=== PATIENT | female | born 1960 | race Caucasian/White ===

== ENCOUNTER → 2017-02-03 | Outpatient (CLI) | payer MEDICARE ==
[~2017-02-03] MED LIST: ANTIVERT/2525 M1 PO; ANTIVERT25 MG PO; ASPIRIN81 M1 PO; ATIVAN0.5 MG PO; B COMPLEX1 EACH PO; CIPRO500 MG PO; CIPROFLOXACIN500 MG PO; FLAGYL500 MG PO; HYDR25T PO; HYDROCHLOROTH12.5 M3 PO; HYDRODIURIL25 MG; LOVASTATIN40 MG PO; METOPROLOL TART50 M1 PO; METOPROLOL50 MG PO; MEVACOR20 MG PO; PANTOPRAZOLE SO40 MG PO; PAPAYA ENZYME1 TA1 PO; PROBIOTIC250 MG PO; ULTRAM50 MG PO; VICODIN 5/500 505 MG PO; VITAMIN C500 M4 PO; VITAMIN D-32000 UNIT PO; ZANTAC 150150 MG PO; ZOFRAN4 MG PO
== END | disposition home or self-care (01) ==
LOC: MRI 11:00
DX: I67.82 Cerebral ischemia (principal)

== ENCOUNTER 2017-03-01 20:28 | Emergency (ER) | payer MEDICARE ==
[~2017-03-01] VITALS: Wt 77.1 kg
== END 2017-03-01 21:24 | disposition home or self-care (01) ==
LOC: ED 20:28
DX: S91.131A Puncture wound without foreign body of right great toe without damage to nail, initial encounter (principal); R03.0 Elevated blood-pressure reading, without diagnosis of hypertension; I10 Essential (primary) hypertension; E78.5 Hyperlipidemia, unspecified; F41.9 Anxiety disorder, unspecified; Z88.6 Allergy status to analgesic agent; Z88.1 Allergy status to other antibiotic agents; Z79.82 Long term (current) use of aspirin; Z79.899 Other long term (current) drug therapy; Y29.XXXA Contact with blunt object, undetermined intent, initial encounter; Y93.31 Activity, mountain climbing, rock climbing and wall climbing; Y92.828 Other wilderness area as the place of occurrence of the external cause; Y99.9 Unspecified external cause status

== ENCOUNTER → 2017-03-04 | Outpatient (CLI) | payer MEDICARE ==
--- NOTE | ~2017-03-04 | WRIGHTHP ---
[place], [place] PATIENT HISTORY AND PHYSICAL EXAM NAME: NICOLE CHAVEZ [facility] #: [id number] UNIT #: [id number] ROOM: DOCTOR: FRANCOIS HOGUE M.D. BIRTHDATE: [birth year] DOS: 03/04/2017 NEW PATIENT EVALUATION CHIEF COMPLAINT: The patient is a 56-year-old female who comes in with a chief complaint of an abscess on her chest wall. HISTORY OF PRESENT ILLNESS: This is a 56-year-old female who apparently has had a cyst of the chest wall for years that she initially had been considering removal of the cyst by surgery, but she was concerned about possible scarring, so she elected to not get the cyst removed, and that was just recently considered. However, approximately 02/12/2017, the cyst apparently started to become increased in size with signs of infection, and she had treated it with a "draw salve" to try to draw the infection. She said she used something called PRID and then something called bloodroot that she obtained from a friend of hers. She had been using alcohol initially and then peroxide afterwards for cleansing. Eventually, the abscess started to drain on its own where pus came out. She had been started on Bactrim, sounds like by her primary care physician, for 10 days. She took it and then she stopped, but now she is back on it. She was also seen by a plastic surgeon at [facility], it sounds like, where he had debrided some of the area. Apparently, there was some tissue around it, and she had the wound debrided. She continues to be concerned about scar formation and was told that she did not need to come back to the wound clinic for a week, so she wanted to be seen again regarding the wound for another opinion. She was told to use Neosporin on it. PAST MEDICAL HISTORY: Significant for hypertension, hyperlipidemia, chronic vertigo, history of depression, and a history of anxiety. She denies any history of diabetes or MRSA infections that she is aware of. She does complain of scar formation on her chest from previous wounds. She has had a history of abdominal pain, which is resolved, a history of acute renal failure, E. coli bacteremia, UTI, hyperlipidemia, hypokalemia, nausea, neutrophilic leukocytosis, pyelonephritis, severe malnutrition, history of sepsis with acute organ dysfunction, a history of tachycardia, which has resolved, transaminitis, and chronic vertigo. She is status post tubal ligation. FAMILY HISTORY: Significant for cancer in her mother, diabetes in her father, heart disease in her siblings, hypertension in her mother, stroke in her aunt, lung disease in her siblings, seizure disorder in grandparents, and thyroid problems in her siblings. SOCIAL HISTORY: She is a former smoker, quit in 1983, and is a . She rarely drinks alcohol, does not use any drugs. She drinks caffeine on a daily basis. ALLERGIES: CIPRO and CODEINE. CURRENT MEDICATIONS: Medications that are listed in her medical records are metoprolol 50 p.o. b.i.d., aspirin 81 daily, vitamin D3 2000 units daily, lovastatin 40 mg p.o. daily, vitamin B complex one daily, vitamin C 500 p.o. [place], [place] PATIENT HISTORY AND PHYSICAL EXAM NAME: NICOLE CHAVEZ UNIT #: [id number] ROOM: DOCTOR: FRANCOIS HOGUE M.D. BIRTHDATE: [birth year] daily. REVIEW OF SYSTEMS: She offers no specific complaints with the wound at this time. She says there is some drainage. There is no pain with it. No fevers or chills. No shortness of breath, no chest pain, no nausea, no vomiting, no diarrhea. No problems with the antibiotics that she is aware of. Right now, she is using triple antibiotic ointment and a gauze bandage for as a secondary dressing. PHYSICAL EXAMINATION: VITAL SIGNS: Her temperature is 98.6, pulse of 82, respirations 18, blood pressure is 122/82. GENERAL: This is a female who appears younger than her stated age, in no acute distress. HEENT: Her oropharynx is clear. Extraocular movements are intact. Sclerae are anicteric. NECK: There is no JVD. LUNGS: Clear to auscultation. CARDIOVASCULAR: S1, S2 regular rate and rhythm. ABDOMEN: Obese, soft, and nontender. EXTREMITIES: No edema, no clubbing, and no calf tenderness. NEUROLOGIC: She is nonfocal. WOUND EXAM: She has a wound that is in the center of her chest that is open and clean with granulation tissue. It is measuring 2.8 x 1.7 x 0.4 in depth, and there is a small amount of undermining at the 10 to 12 o'clock position. There is no tunneling. The wound is clean. There is no surrounding cellulitis or tenderness. A swab culture was obtained of the deepest part of the wound. ASSESSMENT AND PLAN: Chest wall abscess, which is already drained and free of any necrotic tissue. There is a little bit of undermining and depth to the wound. I would like to use Aquacel Ag ribbon as well as a foam overlying and have her change it on every other day, and I would discontinue the Neosporin for now and have her follow up with us in 1 week. A culture was obtained today. She is already on Bactrim. There are no signs of an acute infection at this time clinically. Followup in 1 week. [place], [place] PATIENT HISTORY AND PHYSICAL EXAM NAME: NICOLE CHAVEZ UNIT #: [id number] ROOM: DOCTOR: FRANCOIS HOGUE M.D. BIRTHDATE: [birth year] FRANCOIS HOGUE MD CM:HISPHYS:PATIENT HISTORY AND PHYSICAL EXAMINATION [id number] FRANCOIS HOGUE M.D. 03/05/17 1246 interface
== END ==
LOC: WOUNDCARE 10:51
DX: L02.213 Cutaneous abscess of chest wall (principal); I10 Essential (primary) hypertension; E78.5 Hyperlipidemia, unspecified; F32.9 Major depressive disorder, single episode, unspecified; F41.9 Anxiety disorder, unspecified; Z87.891 Personal history of nicotine dependence

== ENCOUNTER → 2017-03-11 | Outpatient (CLI) | payer MEDICARE ==
--- NOTE | ~2017-03-11 | PR ---
[place], [place] PROGRESS NOTE NAME: NICOLE CHAVEZ [facility] #: [id number] UNIT #: [id number] ROOM: DOCTOR: FRANCOIS HOGUE M.D. BIRTHDATE: [birth year] DOS: 03/11/2017 SUBJECTIVE: The patient comes in for a followup wound care visit. CHIEF COMPLAINT: An open ulcer of the chest wall. HISTORY OF PRESENT ILLNESS: She had a chronic cyst present in the chest for years. The cyst eventually broke open and drained on its own and she had an open wound present for approximately 2 weeks now. The wound was seen last week for the first time, where it was quite large. There was a little bit of undermining and some depth to it. A culture was obtained, which was unremarkable. She had been seen by a plastic surgeon at [facility] and she apparently did follow up with him last week as well, early this week and he thought that she did not need any kind of Plastic Surgery. She comes in today without any specific complaints. There is no pain. There are no fevers or chills. She seems to like the dressing that we have utilized, which is Aquacel Ag Ribbon and it seems to be getting smaller in general. PHYSICAL EXAMINATION: VITAL SIGNS: She is afebrile, pulse of 80, respirations 18, temperature is 98.2. Blood pressure is 120/70. WOUND EXAMINATION: The wound is definitely getting smaller at 1.8 x 1 x 0.2 only and one in the medial portion of the wound. There is really no visible necrotic tissue. There is a good amount of granulation tissue with no periwound cellulitis. There is really no undermining noted either. No debridement was done. ASSESSMENT AND PLAN: Healing abscess of the chest wall. We will continue with the current dressing and have her follow up in 1 week. FRANCOIS HOGUE MD CM:PNTRANS [id number] FRANCOIS HOGUE M.D. 03/11/172199 interface
== END | disposition home or self-care (01) ==
LOC: WOUNDCARE 03:34
DX: L02.213 Cutaneous abscess of chest wall (principal)

== ENCOUNTER → 2017-03-18 | Outpatient (CLI) | payer MEDICARE ==
[~2017-03-18] MED LIST changes: +VITAMIN E200 UNI3 PO
--- NOTE | ~2017-03-18 | PR ---
[place], [place] PROGRESS NOTE NAME: NICOLE CHAVEZ [facility] #: [id number] UNIT #: [id number] ROOM: DOCTOR: FRANCOIS HOGUE M.D. BIRTHDATE: [birth year] DOS: 03/18/2017 CHIEF COMPLAINT: An open ulcer of chest wall. HISTORY OF PRESENT ILLNESS: The patient had an abscess of her chest wall that drained on its own. She was left with a very large wound. She has been coming to the Wound Clinic for 2 weeks now where the wound has been steadily improving. She comes in today and the wound looks healed. She is not having any drainage coming from it. No pain, no fevers or chills. PHYSICAL EXAMINATION: VITAL SIGNS: Stable. Temperature 98.4, pulse is 74, respirations 18, blood pressure is 140/90. SKIN: The wound is healed. It is completely epithelialized. We will discharge the patient. ASSESSMENT AND PLAN: Healed abscess of the chest wall. Discharged the patient from the Wound Clinic and have her use moisturizer and/or Mederma to help lessen the appearance of the scar. FRANCOIS HOGUE MD CM:KASI [id number] FRANCOIS HOGUE M.D. 03/19/17 0237 interface
== END ==
LOC: WOUNDCARE 02:28
DX: L02.213 Cutaneous abscess of chest wall (principal)

== ENCOUNTER → 2017-03-24 | Day surgery (SDC) | payer MEDICARE ==
[~2017-03-24] VITALS: Ht 157.4 cm; Wt 77.1 kg
--- NOTE | ~2017-03-24 | O ---
[place], [place] OPERATIVE NOTE NAME: NICOLE CHAVEZ UNIT #: [id number] ROOM: DOCTOR: ROBER CERVANTES MD BIRTHDATE: [birth year] DOS: 03/24/2017 PREOPERATIVE DIAGNOSIS: Toxic labyrinthitis left ear. POSTOPERATIVE DIAGNOSIS: Toxic labyrinthitis left ear. OPERATION: Intratympanic dexamethasone perfusion left ear. SURGEON: Dr. Cervantes. ANESTHESIA: General. OPERATIVE FINDINGS AND PROCEDURE: Following induction of general anesthesia the patient was positioned supine on the OR table, draped in a standard fashion for ear surgery. Approximately 1 mL of dexamethasone injection 10 mg/mL concentration was placed in the left middle ear space using a 25 gauge spinal needle. The patient tolerated the procedure well, was awakened and transported to PACU in satisfactory condition. ROBER CERVANTES MD CM:OPRECORD:OPERATIVE NOTE [id number] ROBER CERVANTES MD 03/24/17 1441 interface
[2017-03-24 09:37] VITALS: BP 150/57
[2017-03-24 10:32] VITALS: BP 90/37
[2017-03-24 10:47] VITALS: BP 103/37
[2017-03-24 10:58] VITALS: BP 110/53
[2017-03-24 11:02] VITALS: BP 103/55
== END | disposition home or self-care (01) ==
LOC: SDC 03-19 09:30
DX: H83.01 Labyrinthitis, right ear (principal); I10 Essential (primary) hypertension; E78.5 Hyperlipidemia, unspecified; N30.10 Interstitial cystitis (chronic) without hematuria; Z83.3 Family history of diabetes mellitus; Z82.49 Family history of ischemic heart disease and other diseases of the circulatory system; Z80.0 Family history of malignant neoplasm of digestive organs; Z87.891 Personal history of nicotine dependence; Z79.899 Other long term (current) drug therapy; Z88.1 Allergy status to other antibiotic agents; Z88.5 Allergy status to narcotic agent; K21.9 Gastro-esophageal reflux disease without esophagitis; F41.9 Anxiety disorder, unspecified; F32.9 Major depressive disorder, single episode, unspecified; Z98.51 Tubal ligation status; K75.9 Inflammatory liver disease, unspecified

== ENCOUNTER → 2017-04-25 | Outpatient (CLI) | payer MEDICARE | END | disposition home or self-care (01) | LOC: RAD 13:25 | DX: M17.11 Unilateral primary osteoarthritis, right knee (principal); M25.461 Effusion, right knee; M76.9 Unspecified enthesopathy, lower limb, excluding foot ==

== ENCOUNTER → 2017-04-28 | Day surgery (SDC) | payer MEDICARE ==
[~2017-04-28] VITALS: Ht 157.4 cm; Wt 77.1 kg
--- NOTE | ~2017-04-28 | ZIPDEX ---
[place], [place] INTRATYMPANIC DEXAMETHASONE INJECTION [id number] UNIT #: [id number] ROOM: DOCTOR: ROBER WEBER MDATE: [birth year] DATE: 04/28/17 PREOPERATIVE DIAGNOSIS: Toxic labyrinthitis left ear. POSTOPERATIVE DIAGNOSIS: Same. OPERATION: Intratympanic Dexamethasone perfusion left ear. SURGEON: Dr. Weber. ANESTHESIA: General. OPERATIVE FINDINGS AND PROCEDURE: Following induction of general anesthesia the patient was positioned supine on the OR table, draped in a standard fashion for ear surgery. Approximately 1 cc of Dexamethasone injection 10 mg/cc concentration was placed in the left middle ear space using a 25 gauge spinal needle. The patient tolerated the procedure well, was awakened and transported to PACU in satisfactory condition. MROBER VILLARREAL MD CM:OPRECORD:INTRATYMPANIC DEXAMETHASONE INJECTION 1006 [id number] ROBER WEBER MD 04/30/17 1007 BOOM RAE.Neida
[2017-04-28 11:00] VITALS: BP 132/82
[2017-04-28 12:08] VITALS: BP 87/40
[2017-04-28 12:22] VITALS: BP 84/41
[2017-04-28 12:38] VITALS: BP 84/41
[2017-04-28 12:50] VITALS: BP 118/69
[2017-04-28 12:58] VITALS: BP 118/69
== END | disposition home or self-care (01) ==
LOC: SDC 04-23 08:45
DX: H83.02 Labyrinthitis, left ear (principal); I10 Essential (primary) hypertension; K21.9 Gastro-esophageal reflux disease without esophagitis; F41.9 Anxiety disorder, unspecified; F32.9 Major depressive disorder, single episode, unspecified; E78.00 Pure hypercholesterolemia, unspecified; Z82.49 Family history of ischemic heart disease and other diseases of the circulatory system; Z87.891 Personal history of nicotine dependence; B19.10 Unspecified viral hepatitis B without hepatic coma; Z98.51 Tubal ligation status; Z98.890 Other specified postprocedural states; Z88.1 Allergy status to other antibiotic agents; Z88.8 Allergy status to other drugs, medicaments and biological substances; Z80.0 Family history of malignant neoplasm of digestive organs

== ENCOUNTER → 2017-05-19 | Day surgery (SDC) | payer MEDICARE ==
[~2017-05-19] VITALS: Ht 157.4 cm; Wt 77.1 kg
--- NOTE | ~2017-05-19 | O ---
[place], [place] OPERATIVE NOTE NAME: NICOLE CHAVEZ UNIT #: [id number] ROOM: DOCTOR: ROBER CERVANTES MD BIRTHDATE: [birth year] DOS: 05/19/2017 PREOPERATIVE DIAGNOSIS: Toxic labyrinthitis left ear. POSTOPERATIVE DIAGNOSIS: Toxic labyrinthitis left ear. OPERATION: Intratympanic dexamethasone perfusion left ear. SURGEON: Dr. Cervantes. ANESTHESIA: General. OPERATIVE FINDINGS AND PROCEDURE: Following induction of general anesthesia the patient was positioned supine on the OR table, draped in a standard fashion for ear surgery. Approximately 1 mL of dexamethasone injection 10 mg/mL concentration was placed in the left middle ear space using a 25 gauge spinal needle. The patient tolerated the procedure well, was awakened and transported to PACU in satisfactory condition. ROBER CERVANTES MD CM:OPRECORD:OPERATIVE NOTE 5 7 ROBER CERVANTES MD 05/19/17847 interface
[2017-05-19 07:15] VITALS: BP 148/70
[2017-05-19 08:28] VITALS: BP 113/51
[2017-05-19 08:43] VITALS: BP 100/42
[2017-05-19 08:58] VITALS: BP 119/59
== END | disposition home or self-care (01) ==
LOC: SDC 05-15 12:30
DX: H83.02 Labyrinthitis, left ear (principal); Z87.891 Personal history of nicotine dependence; I10 Essential (primary) hypertension; K21.9 Gastro-esophageal reflux disease without esophagitis; F41.9 Anxiety disorder, unspecified; F32.9 Major depressive disorder, single episode, unspecified; E78.00 Pure hypercholesterolemia, unspecified; K75.9 Inflammatory liver disease, unspecified; Z98.51 Tubal ligation status; Z82.49 Family history of ischemic heart disease and other diseases of the circulatory system

== ENCOUNTER → 2017-07-16 | Outpatient (CLI) | payer MEDICARE | END | disposition home or self-care (01) | LOC: RAD 14:26 | DX: M25.552 Pain in left hip (principal); M54.42 Lumbago with sciatica, left side ==

== ENCOUNTER → 2017-12-25 | Outpatient (CLI) | payer MEDICARE | END | disposition home or self-care (01) | LOC: US 12-23 11:00 | DX: I70.219 Atherosclerosis of native arteries of extremities with intermittent claudication, unspecified extremity (principal) ==

== ENCOUNTER 2018-02-09 10:12 | Inpatient (IN) | payer MEDICARE ==
[~2018-02-09] VITALS: Ht 157.4 cm; Wt 81.8 kg
--- NOTE | ~2018-02-09 | ST ---
[place], [place] EXERCISE STRESS TEST REPORT [id number] UNIT #: [id number] ROOM: [id number] DOCTOR: GABRIEL TAVARES MD BIRTHDATE: [birth year] DOS: 02/10/2018 EXERCISE TREADMILL STRESS TEST. REFERRING PHYSICIAN: Dr. Preston. INDICATION: Central chest pain. The patient underwent standard Cesar protocol stress EKG with accompanying perfusion scan imaging. The patient's baseline EKG showed normal sinus rhythm with nonspecific ST-T wave changes. The patient's baseline heart rate 72 beats per minute with the blood pressure 124/90. The patient's peak heart rate was 147 with a peak blood pressure 124/68. The patient's peak heart rate of 147 represents 90% of maximum predicted. The patient exercised for 6 minutes. The patient had no chest pain. The patient had no arrhythmias. The patient did have [address] depressions in leads II, III, aVF as well as V5 and V6. These were first 6 minutes of exercise with a heart rate of 147. These resolved within 1 minute of recovery. SUMMARY OF FINDINGS: 1. Abnormal stress EKG with [address] depression in inferior lateral leads that resolved within 1 minute of recovery. 2. Wheeler Treadmill score of 1 portending intermediate risk prognosis. 3. Please see perfusion scan imaging for stress imaging results. GABRIEL TAVARES MD CM:STRESS:EXERCISE STRESS TEST REPORT [id number] GABRIEL TAVARES MD
[2018-02-09 10:12] VITALS: BP 134/56
[2018-02-09 10:44] LABS: BASO # 0.1 10*3/uL (0.0-0.1); BASO % 0.9 % (0.0-1.0); EOS # 0.2 10*3/uL (0.0-0.4); EOS % 2.1 % (1.0-4.0); HEMATOCRIT 41.3 % (37.0-47.0); HEMOGLOBIN 13.8 g/dl (12.0-16.0); MEAN CORPUSCULAR HGB 30.1 pg (27.0-31.0); MEAN CORPUSCULAR HGB CONC 33.4 g/dl (33.0-37.0); MEAN PLATELET VOLUME 8.4 fl (9.6-12.3); MONO # 0.8 10*3/uL (0.1-1.0); MONO % 10.8 % (3.0-9.0); NEUT # 4.6 10*3/uL (2.3-7.9); NEUT % 59.9 % (47.0-73.0); PLATELET COUNT AUTOMATED 364 10*3/uL (130-400); RED BLOOD COUNT 4.59 10*6/uL (4.10-5.10); RED CELL DISTRI WIDTH 13.1 % (0-14.5); WHITE BLOOD COUNT 7.6 10*3/uL (4.8-10.8)
[2018-02-09 10:54] LABS: ACT PARTIAL THROMBO TIME 23.9 SECONDS (20.8-31.5); INTERNATIONAL NORM RATIO 0.9 (2.0-3.5)
[2018-02-09 11:00] LABS: ALBUMIN 3.6 gm/dl (3.1-4.5); ALKALINE PHOSPHATASE 109 U/L (45-117); BUN 12 mg/dl (7-24); CHLORIDE 107 mmol/L (98-107); CREATININE 0.86 mg/dL (0.55-1.02); POTASSIUM 4.2 mmol/L (3.5-5.1); SGOT/AST 21 IU/L (3-35); SGPT/ALT 23 U/L (12-78); SODIUM 140 mmol/L (136-145); TOTAL PROTEIN 7.3 gm/dL (6.4-8.2)
[2018-02-09 11:04] LABS: TROPONIN I < 0.015 ng/ml (<0.045)
[2018-02-09 11:21] VITALS: BP 128/58
[2018-02-09 12:00] VITALS: BP 148/64
[2018-02-09] MEDS ORDERED: VITAMIN D50000 UNIT PO (14:25)
[2018-02-09] MEDS ORDERED: FENOFIBRATE54 MG PO (14:25)
[2018-02-09] MEDS ORDERED: ZOLOFT50 MG PO (14:26)
[2018-02-09] MEDS ORDERED: TOPROL XL25 MG PO (14:27)
[2018-02-09] MEDS ORDERED: HYDR12.5C PO (14:27)
[2018-02-09 16:00] VITALS: BP 143/55
[2018-02-09 20:00] VITALS: BP 159/77
[2018-02-10] VITALS: BP 146/78
[2018-02-10 08:00] VITALS: BP 144/73
[2018-02-10 12:00] VITALS: BP 130/60
[2018-02-10 12:33] LABS: BASO # 0.1 10*3/uL (0.0-0.1); BASO % 0.9 % (0.0-1.0); EOS # 0.1 10*3/uL (0.0-0.4); EOS % 1.9 % (1.0-4.0); HEMATOCRIT 42.2 % (37.0-47.0); HEMOGLOBIN 14.1 g/dl (12.0-16.0); LYMPH % 29.2 % (27.0-41.0); MEAN CELL VOLUME 89.6 fl (81.0-99.0); MEAN CORPUSCULAR HGB 29.9 pg (27.0-31.0); MEAN CORPUSCULAR HGB CONC 33.4 g/dl (33.0-37.0); MEAN PLATELET VOLUME 8.7 fl (9.6-12.3); MONO # 0.7 10*3/uL (0.1-1.0); MONO % 10.2 % (3.0-9.0); NEUT % 57.7 % (47.0-73.0); PLATELET COUNT AUTOMATED 377 10*3/uL (130-400); RED BLOOD COUNT 4.71 10*6/uL (4.10-5.10); RED CELL DISTRI WIDTH 13.1 % (0-14.5)
[2018-02-10 12:44] LABS: ACT PARTIAL THROMBO TIME 24.2 SECONDS (20.8-31.5); INTERNATIONAL NORM RATIO 0.9 (2.0-3.5)
[2018-02-10 12:47] LABS: ALBUMIN 3.7 gm/dl (3.1-4.5); ALKALINE PHOSPHATASE 117 U/L (45-117); BUN 19 mg/dl (7-24); CHLORIDE 105 mmol/L (98-107); CHOLESTEROL 252 mg/dL (<200); CREATININE 0.97 mg/dL (0.55-1.02); FREE T4 0.85 ng/dl (0.76-1.46); PHOSPHOROUS 3.4 mg/dL (2.5-4.9); POTASSIUM 3.7 mmol/L (3.5-5.1); SGOT/AST 22 IU/L (3-35); SGPT/ALT 28 U/L (12-78); SODIUM 138 mmol/L (136-145); TOTAL PROTEIN 7.8 gm/dL (6.4-8.2); TRIGLYCERIDES 120 mg/dl (<150); VLDL CHOLESTEROL 24 mg/dL (6-40)
[2018-02-10 12:53] LABS: HDL CHOLESTEROL 56 mg/dl (40-60); LDL CHOLESTEROL 172 mg/dL (9-159)
[2018-02-10 13:27] LABS: VITAMIN D, 25-HYDROXY 26.6 ng/mL (30-100)
[2018-02-10] MEDS ORDERED: LOVASTATIN40 MG PO (14:33)
== END 2018-02-10 15:45 | disposition home or self-care (01) | DRG 313 ==
LOC: ED 10:12 → 5E 11:10 → EDHOLD 11:10 → 5E 11:37
PROVIDERS: Family Medicine; Student in an Organized Health Care Education/Training Program
PROC: 4A02XM4 Measurement of Cardiac Total Activity, External Approach (ICD-10-PCS; principal; 2018-02-10)
DX: R07.9 Chest pain, unspecified (principal); E55.9 Vitamin D deficiency, unspecified; K21.9 Gastro-esophageal reflux disease without esophagitis; I10 Essential (primary) hypertension; E78.5 Hyperlipidemia, unspecified; E66.9 Obesity, unspecified; R00.1 Bradycardia, unspecified; F41.9 Anxiety disorder, unspecified; Z87.891 Personal history of nicotine dependence; Z82.49 Family history of ischemic heart disease and other diseases of the circulatory system; Z98.51 Tubal ligation status; Z83.3 Family history of diabetes mellitus; Z80.0 Family history of malignant neoplasm of digestive organs; Z88.1 Allergy status to other antibiotic agents; Z88.8 Allergy status to other drugs, medicaments and biological substances; Z79.899 Other long term (current) drug therapy; Z79.82 Long term (current) use of aspirin; Z87.440 Personal history of urinary (tract) infections; Z68.33 Body mass index [BMI] 33.0-33.9, adult

== ENCOUNTER → 2018-08-02 | Outpatient (CLI) | payer MEDICARE ==
[~2018-08-02] MED LIST changes: +FENOFIBRATE54 MG PO; +HYDR12.5C PO; +SEPTDS PO; +TOPROL XL25 MG PO; +VITAMIN D50000 UNIT PO; +ZOLOFT50 MG PO
[2018-08-02 10:33] LABS: BASO # 0.1 10*3/uL (0.0-0.1); BASO % 1.2 % (0.0-1.0); EOS # 0.3 10*3/uL (0.0-0.4); EOS % 4.4 % (1.0-4.0); HEMATOCRIT 45.1 % (37.0-47.0); HEMOGLOBIN 14.9 g/dl (12.0-16.0); LYMPH # 2.1 10*3/uL (1.3-4.4); LYMPH % 27.7 % (27.0-41.0); MEAN CELL VOLUME 91.9 fl (81.0-99.0); MEAN CORPUSCULAR HGB 30.3 pg (27.0-31.0); MEAN PLATELET VOLUME 8.7 fl (9.6-12.3); MONO # 0.5 10*3/uL (0.1-1.0); MONO % 6.7 % (3.0-9.0); NEUT # 4.4 10*3/uL (2.3-7.9); NEUT % 59.7 % (47.0-73.0); PLATELET COUNT AUTOMATED 322 10*3/uL (130-400); RED BLOOD COUNT 4.91 10*6/uL (4.10-5.10); WHITE BLOOD COUNT 7.4 10*3/uL (4.8-10.8)
[2018-08-02 11:12] LABS: ALBUMIN 3.9 gm/dl (3.1-4.5); BUN 13 mg/dl (7-24); CHLORIDE 102 mmol/L (98-107); CHOLESTEROL 228 mg/dL (<200); CREATININE 0.84 mg/dL (0.55-1.02); POTASSIUM 3.6 mmol/L (3.5-5.1); SGOT/AST 26 IU/L (3-35); SGPT/ALT 26 U/L (12-78); SODIUM 135 mmol/L (136-145); THYROXINE (T4) TOTAL 9.8 ug/dl (4.8-13.9); TOTAL PROTEIN 7.9 gm/dL (6.4-8.2); TRIGLYCERIDES 166 mg/dl (<150); VLDL CHOLESTEROL 33 mg/dL (6-40)
[2018-08-02 11:21] LABS: ALKALINE PHOSPHATASE 117 U/L (45-117); HDL CHOLESTEROL 52 mg/dl (40-60); LDL CHOLESTEROL 143 mg/dL (9-159)
[2018-08-03 11:07] LABS: CREATININE,URINE 33.2 mg/dL (Not Estab.); MICRO ALBUMIN/CRE RATIO 9.9 (0.0-30.0)
== END | disposition home or self-care (01) ==
LOC: LAB 09:47
PROVIDERS: Emergency Medicine
DX: I10 Essential (primary) hypertension (principal); E78.2 Mixed hyperlipidemia; R73.01 Impaired fasting glucose; F32.9 Major depressive disorder, single episode, unspecified

== ENCOUNTER 2018-08-11 15:45 | Emergency (ER) | payer MEDICARE ==
[~2018-08-11] VITALS: Ht 157.4 cm; Wt 81.6 kg
[~2018-08-11 15:45] MED LIST changes: -SEPTDS PO
[2018-08-30] MEDS ORDERED: SEPTDS PO (23:34)
== END 2018-08-11 17:30 | disposition home or self-care (01) ==
LOC: ED 15:45
DX: R05 Cough (principal); K21.9 Gastro-esophageal reflux disease without esophagitis; E78.5 Hyperlipidemia, unspecified; I10 Essential (primary) hypertension; E66.9 Obesity, unspecified; Z68.30 Body mass index [BMI] 30.0-30.9, adult; Z88.5 Allergy status to narcotic agent; Z88.1 Allergy status to other antibiotic agents; Z79.899 Other long term (current) drug therapy; Z79.82 Long term (current) use of aspirin; Z87.891 Personal history of nicotine dependence

== ENCOUNTER 2018-08-31 20:52 | Emergency (ER) | payer MEDICARE ==
[~2018-08-31] VITALS: Ht 157.4 cm; Wt 77.1 kg
[~2018-08-31 20:52] MED LIST changes: +SEPTDS PO
== END 2018-08-31 21:32 | disposition home or self-care (01) ==
LOC: ED 20:52
DX: T82.898A Other specified complication of vascular prosthetic devices, implants and grafts, initial encounter (principal); Z88.1 Allergy status to other antibiotic agents; Z88.6 Allergy status to analgesic agent; Z79.899 Other long term (current) drug therapy; Z79.82 Long term (current) use of aspirin; Z87.891 Personal history of nicotine dependence

== ENCOUNTER → 2019-01-20 | Outpatient (CLI) | payer OTHER, MEDICARE ==
[~2019-01-20] MED LIST changes: +CEPHALEXIN500 M1 PO
[2019-01-20 10:52] LABS: BASO # 0.1 10*3/uL (0.0-0.1); BASO % 0.8 % (0.0-1.0); EOS # 0.2 10*3/uL (0.0-0.4); EOS % 2.9 % (1.0-4.0); HEMATOCRIT 46.1 % (37.0-47.0); HEMOGLOBIN 15.1 g/dl (12.0-16.0); LYMPH # 1.5 10*3/uL (1.3-4.4); LYMPH % 25.7 % (27.0-41.0); MEAN CELL VOLUME 91.1 fl (81.0-99.0); MEAN CORPUSCULAR HGB 29.8 pg (27.0-31.0); MEAN CORPUSCULAR HGB CONC 32.8 g/dl (33.0-37.0); MEAN PLATELET VOLUME 8.7 fl (9.6-12.3); MONO # 0.5 10*3/uL (0.1-1.0); MONO % 8.4 % (3.0-9.0); NEUT # 3.7 10*3/uL (2.3-7.9); NEUT % 61.9 % (47.0-73.0); PLATELET COUNT AUTOMATED 312 10*3/uL (130-400); RED BLOOD COUNT 5.06 10*6/uL (4.10-5.10); RED CELL DISTRI WIDTH 13.2 % (0-14.5)
[2019-01-20 11:16] LABS: ALBUMIN 3.6 gm/dl (3.1-4.5); ALKALINE PHOSPHATASE 126 U/L (45-117); BUN 10 mg/dl (7-24); CHLORIDE 109 mmol/L (98-107); CHOLESTEROL 224 mg/dL (<200); CREATININE 0.88 mg/dL (0.55-1.02); HDL CHOLESTEROL 51 mg/dl (40-60); IRON 88 ug/dL (50-170); LDL CHOLESTEROL 144 mg/dL (9-159); POTASSIUM 4.2 mmol/L (3.5-5.1); SGOT/AST 24 IU/L (3-35); SGPT/ALT 27 U/L (12-78); SODIUM 141 mmol/L (136-145); TOTAL IRON BINDING CAPACITY 362 ug/dl (250-450); TOTAL PROTEIN 7.8 gm/dL (6.4-8.2); TRIGLYCERIDES 146 mg/dl (<150); VLDL CHOLESTEROL 29 mg/dL (6-40)
== END | disposition home or self-care (01) ==
LOC: LAB 10:22
PROVIDERS: Emergency Medicine
DX: I10 Essential (primary) hypertension (principal); E11.9 Type 2 diabetes mellitus without complications; E78.5 Hyperlipidemia, unspecified; R53.83 Other fatigue

== ENCOUNTER 2019-05-13 08:48 | Emergency (ER) | payer MEDICARE ==
[~2019-05-13] VITALS: Ht 157.4 cm; Wt 83.9 kg
[~2019-05-13 08:48] MED LIST changes: -CEPHALEXIN500 M1 PO
[2019-05-13] MEDS ORDERED: CEPHALEXIN500 M1 PO (09:42)
== END 2019-05-13 10:59 | disposition home or self-care (01) ==
LOC: ED 08:48
DX: M79.671 Pain in right foot (principal); Z88.5 Allergy status to narcotic agent; Z88.1 Allergy status to other antibiotic agents; Z79.899 Other long term (current) drug therapy; Z79.82 Long term (current) use of aspirin; Z87.891 Personal history of nicotine dependence

== ENCOUNTER 2019-06-05 11:24 | Emergency (ER) | payer MEDICARE ==
[~2019-06-05] VITALS: Ht 157.4 cm; Wt 81.6 kg
[~2019-06-05 11:24] MED LIST changes: +CEPHALEXIN500 M1 PO
[2019-06-05] MEDS ORDERED: CIPRO250 MG PO (11:58)
== END 2019-06-05 12:16 | disposition home or self-care (01) ==
LOC: ED 11:24
DX: S91.131A Puncture wound without foreign body of right great toe without damage to nail, initial encounter (principal); K21.9 Gastro-esophageal reflux disease without esophagitis; E66.9 Obesity, unspecified; E78.5 Hyperlipidemia, unspecified; I10 Essential (primary) hypertension; Z88.6 Allergy status to analgesic agent; Z88.1 Allergy status to other antibiotic agents; Z79.899 Other long term (current) drug therapy; Z79.82 Long term (current) use of aspirin; Z68.34 Body mass index [BMI] 34.0-34.9, adult; Z87.891 Personal history of nicotine dependence; W45.0XXA Nail entering through skin, initial encounter; Y93.89 Activity, other specified; Y92.89 Other specified places as the place of occurrence of the external cause; Y99.8 Other external cause status

== ENCOUNTER → 2020-03-21 | Outpatient (CLI) | payer MEDICARE ==
[~2020-03-21] MED LIST changes: +CIPRO250 MG PO
[2020-03-21 07:30] LABS: BASO # 0.1 10*3/uL (0.0-0.1); EOS # 0.2 10*3/uL (0.0-0.4); EOS % 2.3 % (1.0-4.0); HEMATOCRIT 43.5 % (37.0-47.0); LYMPH % 28.9 % (27.0-41.0); MEAN CELL VOLUME 90.8 fl (81.0-99.0); MEAN CORPUSCULAR HGB 29.9 pg (27.0-31.0); MEAN CORPUSCULAR HGB CONC 32.9 g/dl (33.0-37.0); MEAN PLATELET VOLUME 8.9 fl (9.6-12.3); MONO # 0.6 10*3/uL (0.1-1.0); MONO % 8.6 % (3.0-9.0); NEUT % 58.9 % (47.0-73.0); PLATELET COUNT AUTOMATED 362 10*3/uL (130-400); RED BLOOD COUNT 4.79 10*6/uL (4.10-5.10); RED CELL DISTRI WIDTH 13.1 % (0-14.5); WHITE BLOOD COUNT 6.9 10*3/uL (4.8-10.8)
[2020-03-21 08:03] LABS: ALBUMIN 3.6 gm/dl (3.1-4.5); ALKALINE PHOSPHATASE 119 U/L (45-117); BILIRUBIN, DIRECT 0.1 mg/dL (0.0-0.2); BUN 12 mg/dl (7-24); CHLORIDE 105 mmol/L (98-107); CHOLESTEROL 214 mg/dL (<200); CPK 83 U/L (26-192); CREATININE 0.84 mg/dL (0.55-1.02); HDL CHOLESTEROL 48 mg/dl (40-60); LDL CHOLESTEROL 135 mg/dL (9-159); POTASSIUM 3.8 mmol/L (3.5-5.1); SGOT/AST 21 IU/L (3-35); SGPT/ALT 26 U/L (12-78); SODIUM 135 mmol/L (136-145); TOTAL PROTEIN 7.3 gm/dL (6.4-8.2); TRIGLYCERIDES 153 mg/dl (<150); VLDL CHOLESTEROL 31 mg/dL (6-40)
[2020-03-21 12:16] LABS: VITAMIN D, 25-HYDROXY 40.1 ng/mL (30-100)
[2020-03-23 11:41] LABS: IMMUNOGLOBULIN G, QNT 1046 mg/dL (586-1602); IMMUNOGLOBULIN M, QNT 65 mg/dL (26-217)
== END | disposition home or self-care (01) ==
LOC: LAB 06:48
PROVIDERS: Psychiatry & Neurology Neurology
DX: I10 Essential (primary) hypertension (principal); M25.50 Pain in unspecified joint; E55.9 Vitamin D deficiency, unspecified; E78.2 Mixed hyperlipidemia; M54.31 Sciatica, right side; G90.09 Other idiopathic peripheral autonomic neuropathy; E11.9 Type 2 diabetes mellitus without complications

== ENCOUNTER 2020-03-23 21:12 | Emergency (ER) | payer MEDICARE ==
[2020-03-24 00:06] LABS: BASO # 0.1 10*3/uL (0.0-0.1); BASO % 0.8 % (0.0-1.0); EOS # 0.1 10*3/uL (0.0-0.4); EOS % 1.4 % (1.0-4.0); HEMATOCRIT 44.3 % (37.0-47.0); LYMPH # 2.5 10*3/uL (1.3-4.4); LYMPH % 27.2 % (27.0-41.0); MEAN CELL VOLUME 91.9 fl (81.0-99.0); MEAN CORPUSCULAR HGB 30.1 pg (27.0-31.0); MEAN CORPUSCULAR HGB CONC 32.7 g/dl (33.0-37.0); MEAN PLATELET VOLUME 9.2 fl (9.6-12.3); MONO % 10.5 % (3.0-9.0); NEUT # 5.5 10*3/uL (2.3-7.9); NEUT % 59.9 % (47.0-73.0); PLATELET COUNT AUTOMATED 287 10*3/uL (130-400); RED BLOOD COUNT 4.82 10*6/uL (4.10-5.10); RED CELL DISTRI WIDTH 13.2 % (0-14.5); WHITE BLOOD COUNT 9.2 10*3/uL (4.8-10.8)
[2020-03-24 00:20] LABS: ACT PARTIAL THROMBO TIME 22.5 SECONDS (20.0-32.1); INTERNATIONAL NORM RATIO 0.9 (2.0-3.5)
[2020-03-24 00:23] LABS: ALBUMIN 3.6 gm/dl (3.1-4.5); ALKALINE PHOSPHATASE 115 U/L (45-117); BUN 14 mg/dl (7-24); CHLORIDE 106 mmol/L (98-107); CREATININE 1.01 mg/dL (0.55-1.02); LIPASE 150 U/L (73-393); POTASSIUM 3.9 mmol/L (3.5-5.1); SGOT/AST 20 IU/L (3-35); SGPT/ALT 25 U/L (12-78); SODIUM 138 mmol/L (136-145); TOTAL PROTEIN 7.5 gm/dL (6.4-8.2); TROPONIN I < 0.015 ng/ml (<0.045)
[2020-03-24 02:41] LABS: BILIRUBIN NEGATIVE (NEGATIVE); BLOOD 1+ (NEGATIVE); CLARITY CLEAR (CLEAR); COLOR YELLOW (YELLOW); EPITHELIAL CELLS 21-30; GLUCOSE NEGATIVE (NEGATIVE); KETONE NEGATIVE (NEGATIVE); LEUKO ESTERASE 3+ (NEGATIVE); NITRITE NEGATIVE (NEGATIVE); PH 7.5 (5.0-9.0); SPECIFIC GRAVITY 1.005 (1.005-1.030); UROBILINOGEN 0.2 E.U./dl (0.2-1.0)
[2020-03-24 02:42] LABS: WBC 21-30 wbc/hpf (0-5)
== END 2020-03-24 03:32 | disposition home or self-care (01) ==
LOC: ED 21:12
PROVIDERS: Emergency Medicine Emergency Medical Services
DX: I95.89 Other hypotension (principal); E86.9 Volume depletion, unspecified; Z88.8 Allergy status to other drugs, medicaments and biological substances; Z88.5 Allergy status to narcotic agent; Z79.899 Other long term (current) drug therapy; Z79.82 Long term (current) use of aspirin

== ENCOUNTER → 2020-07-10 | Outpatient (CLI) | payer MEDICARE ==
[2020-07-10 07:26] LABS: BASO # 0.1 10*3/uL (0.0-0.1); BASO % 0.9 % (0.0-1.0); EOS # 0.3 10*3/uL (0.0-0.4); EOS % 3.7 % (1.0-4.0); HEMATOCRIT 45.6 % (37.0-47.0); LYMPH % 25.6 % (27.0-41.0); MEAN CELL VOLUME 91.4 fl (81.0-99.0); MEAN CORPUSCULAR HGB 30.3 pg (27.0-31.0); MEAN CORPUSCULAR HGB CONC 33.1 g/dl (33.0-37.0); MEAN PLATELET VOLUME 8.7 fl (9.6-12.3); MONO # 0.7 10*3/uL (0.1-1.0); MONO % 9.1 % (3.0-9.0); NEUT # 4.7 10*3/uL (2.3-7.9); NEUT % 60.4 % (47.0-73.0); PLATELET COUNT AUTOMATED 356 10*3/uL (130-400); RED BLOOD COUNT 4.99 10*6/uL (4.10-5.10); RED CELL DISTRI WIDTH 13.4 % (0-14.5); WHITE BLOOD COUNT 7.8 10*3/uL (4.8-10.8)
[2020-07-10 07:58] LABS: ALBUMIN 3.7 gm/dl (3.1-4.5); ALKALINE PHOSPHATASE 122 U/L (45-117); BUN 12 mg/dl (7-24); CHLORIDE 106 mmol/L (98-107); CHOLESTEROL 206 mg/dL (<200); HDL CHOLESTEROL 49 mg/dl (40-60); LDL CHOLESTEROL 128 mg/dL (9-159); POTASSIUM 3.9 mmol/L (3.5-5.1); SGOT/AST 20 IU/L (3-35); SGPT/ALT 28 U/L (12-78); SODIUM 135 mmol/L (136-145); TOTAL PROTEIN 7.7 gm/dL (6.4-8.2); TRIGLYCERIDES 143 mg/dl (<150); VLDL CHOLESTEROL 29 mg/dL (6-40)
== END | disposition home or self-care (01) ==
LOC: LAB 07:00
PROVIDERS: ATTEND Emergency Medicine
DX: E55.9 Vitamin D deficiency, unspecified (principal); E78.2 Mixed hyperlipidemia; I10 Essential (primary) hypertension; M54.16 Radiculopathy, lumbar region; F41.9 Anxiety disorder, unspecified

== ENCOUNTER → 2020-09-26 | Outpatient (CLI) | payer MEDICARE ==
[2020-09-26 08:46] LABS: BASO % 0.7 % (0.0-1.0); EOS # 0.1 10*3/uL (0.0-0.4); EOS % 1.8 % (1.0-4.0); HEMATOCRIT 43.9 % (37.0-47.0); LYMPH # 1.3 10*3/uL (1.3-4.4); MEAN CELL VOLUME 91.6 fl (81.0-99.0); MEAN CORPUSCULAR HGB 30.1 pg (27.0-31.0); MEAN CORPUSCULAR HGB CONC 32.8 g/dl (33.0-37.0); MEAN PLATELET VOLUME 8.8 fl (9.6-12.3); MONO # 0.7 10*3/uL (0.1-1.0); MONO % 11.1 % (3.0-9.0); NEUT % 65.1 % (47.0-73.0); PLATELET COUNT AUTOMATED 306 10*3/uL (130-400); RED BLOOD COUNT 4.79 10*6/uL (4.10-5.10); WHITE BLOOD COUNT 6.1 10*3/uL (4.8-10.8)
[2020-09-26 09:17] LABS: CHLORIDE 110 mmol/L (98-107); POTASSIUM 3.8 mmol/L (3.5-5.1); SODIUM 140 mmol/L (136-145)
[2020-09-26 09:33] LABS: ALBUMIN 3.5 gm/dl (3.1-4.5); ALKALINE PHOSPHATASE 133 U/L (45-117); BUN 9 mg/dl (7-24); CHOLESTEROL 149 mg/dL (<200); CREATININE 0.88 mg/dL (0.55-1.02); HDL CHOLESTEROL 55 mg/dl (40-60); LDL CHOLESTEROL 66 mg/dL (9-159); SGOT/AST 23 IU/L (3-35); SGPT/ALT 22 U/L (12-78); TOTAL PROTEIN 7.6 gm/dL (6.4-8.2); TRIGLYCERIDES 139 mg/dl (<150); VLDL CHOLESTEROL 28 mg/dL (6-40)
== END | disposition home or self-care (01) ==
LOC: LAB 07:07
PROVIDERS: ATTEND Emergency Medicine
DX: E11.9 Type 2 diabetes mellitus without complications (principal); E78.2 Mixed hyperlipidemia; E55.9 Vitamin D deficiency, unspecified; I10 Essential (primary) hypertension

== ENCOUNTER → 2021-06-18 | Outpatient (CLI) | payer MEDICARE ==
[2021-06-18 09:45] LABS: ALBUMIN 3.5 gm/dl (3.1-4.5); TOTAL PROTEIN 7.5 gm/dL (6.4-8.2)
== END | disposition home or self-care (01) ==
LOC: LAB 06:58
PROVIDERS: ATTEND Internal Medicine
DX: E78.00 Pure hypercholesterolemia, unspecified (principal)

== ENCOUNTER → 2021-07-23 | Outpatient (CLI) | payer MEDICARE ==
[2021-07-23 07:51] LABS: BASO # 0.1 10*3/uL (0.0-0.1); BASO % 0.9 % (0.0-1.0); EOS # 0.1 10*3/uL (0.0-0.4); EOS % 2.2 % (1.0-4.0); LYMPH # 2.3 10*3/uL (1.3-4.4); MEAN CELL VOLUME 92.9 fl (81.0-99.0); MEAN CORPUSCULAR HGB 30.3 pg (27.0-31.0); MEAN CORPUSCULAR HGB CONC 32.6 g/dl (33.0-37.0); MEAN PLATELET VOLUME 8.6 fl (9.6-12.3); MONO # 0.6 10*3/uL (0.1-1.0); MONO % 9.2 % (3.0-9.0); NEUT # 3.4 10*3/uL (2.3-7.9); NEUT % 52.5 % (47.0-73.0); PLATELET COUNT AUTOMATED 325 10*3/uL (130-400); RED BLOOD COUNT 4.95 10*6/uL (4.10-5.10); RED CELL DISTRI WIDTH 13.1 % (0-14.5); WHITE BLOOD COUNT 6.5 10*3/uL (4.8-10.8)
[2021-07-23 08:08] LABS: ALBUMIN 3.4 gm/dl (3.1-4.5); ALKALINE PHOSPHATASE 125 U/L (45-117); BUN 10 mg/dl (7-24); CHLORIDE 110 mmol/L (98-107); CHOLESTEROL 197 mg/dL (<200); CREATININE 0.92 mg/dL (0.55-1.02); LDL CHOLESTEROL 118 mg/dL (9-159); SGOT/AST 25 IU/L (3-35); SGPT/ALT 34 U/L (12-78); SODIUM 139 mmol/L (136-145); TOTAL PROTEIN 7.4 gm/dL (6.4-8.2); TRIGLYCERIDES 185 mg/dl (<150)
== END | disposition home or self-care (01) ==
LOC: LAB 07:28
PROVIDERS: ATTEND Emergency Medicine
DX: I10 Essential (primary) hypertension (principal); E78.00 Pure hypercholesterolemia, unspecified; K76.0 Fatty (change of) liver, not elsewhere classified

== ENCOUNTER 2021-08-22 01:35 | Emergency (ER) | payer MEDICARE ==
[~2021-08-22] VITALS: Ht 157.4 cm; Wt 90.7 kg
[2021-08-22 02:07] LABS: BASO # 0.1 10*3/uL (0.0-0.1); BASO % 0.8 % (0.0-1.0); EOS # 0.2 10*3/uL (0.0-0.4); EOS % 2.2 % (1.0-4.0); HEMATOCRIT 43.5 % (37.0-47.0); LYMPH # 2.6 10*3/uL (1.3-4.4); LYMPH % 36.4 % (27.0-41.0); MEAN CELL VOLUME 92.2 fl (81.0-99.0); MEAN CORPUSCULAR HGB 30.1 pg (27.0-31.0); MEAN CORPUSCULAR HGB CONC 32.6 g/dl (33.0-37.0); MEAN PLATELET VOLUME 8.9 fl (9.6-12.3); MONO # 0.7 10*3/uL (0.1-1.0); MONO % 9.9 % (3.0-9.0); NEUT # 3.7 10*3/uL (2.3-7.9); NEUT % 50.6 % (47.0-73.0); PLATELET COUNT AUTOMATED 337 10*3/uL (130-400); RED BLOOD COUNT 4.72 10*6/uL (4.10-5.10); WHITE BLOOD COUNT 7.3 10*3/uL (4.8-10.8)
== END 2021-08-22 02:38 | disposition home or self-care (01) ==
LOC: ED 01:35
PROVIDERS: Internal Medicine
DX: R04.0 Epistaxis (principal); I10 Essential (primary) hypertension; Z88.1 Allergy status to other antibiotic agents; Z88.6 Allergy status to analgesic agent; Z79.899 Other long term (current) drug therapy; Z79.82 Long term (current) use of aspirin; Z87.891 Personal history of nicotine dependence

== ENCOUNTER → 2021-11-06 | Outpatient (CLI) | payer MEDICARE ==
[~2021-11-06] MED LIST changes: +COZAAR25 M1 PO; -TOPROL XL25 MG PO; +TOPROL XL50 M1 PO
[2021-11-06 11:39] LABS: ALBUMIN 3.4 gm/dl (3.1-4.5); ALKALINE PHOSPHATASE 122 U/L (45-117); BUN 10 mg/dl (7-24); CHLORIDE 110 mmol/L (98-107); POTASSIUM 3.4 mmol/L (3.5-5.1); SGOT/AST 29 IU/L (3-35); SGPT/ALT 35 U/L (12-78); SODIUM 139 mmol/L (136-145); TOTAL PROTEIN 7.2 gm/dL (6.4-8.2)
== END ==
LOC: LAB 10:53
PROVIDERS: ATTEND Emergency Medicine
DX: I10 Essential (primary) hypertension (principal); R42 Dizziness and giddiness; Z79.899 Other long term (current) drug therapy

== ENCOUNTER 2021-12-07 09:48 | Emergency (ER) | payer MEDICARE ==
[~2021-12-07] VITALS: Ht 157.4 cm; Wt 90.7 kg
[2021-12-07 10:25] LABS: BASO # 0.1 10*3/uL (0.0-0.1); BASO % 0.7 % (0.0-1.0); EOS # 0.2 10*3/uL (0.0-0.4); EOS % 2.7 % (1.0-4.0); HEMATOCRIT 45.3 % (37.0-47.0); LYMPH # 1.8 10*3/uL (1.3-4.4); LYMPH % 20.1 % (27.0-41.0); MEAN CELL VOLUME 89.7 fl (81.0-99.0); MEAN CORPUSCULAR HGB 30.5 pg (27.0-31.0); MEAN PLATELET VOLUME 8.6 fl (9.6-12.3); MONO # 0.7 10*3/uL (0.1-1.0); MONO % 7.9 % (3.0-9.0); NEUT # 6.1 10*3/uL (2.3-7.9); NEUT % 68.3 % (47.0-73.0); PLATELET COUNT AUTOMATED 378 10*3/uL (130-400); RED BLOOD COUNT 5.05 10*6/uL (4.10-5.10); RED CELL DISTRI WIDTH 13.4 % (0-14.5); WHITE BLOOD COUNT 8.9 10*3/uL (4.8-10.8)
== END 2021-12-07 11:17 | disposition home or self-care (01) ==
LOC: ED 09:48
PROVIDERS: Student in an Organized Health Care Education/Training Program
DX: S60.221A Contusion of right hand, initial encounter (principal); Z88.8 Allergy status to other drugs, medicaments and biological substances; Z88.1 Allergy status to other antibiotic agents; Z79.899 Other long term (current) drug therapy; Z79.82 Long term (current) use of aspirin; Z98.51 Tubal ligation status; Z87.891 Personal history of nicotine dependence; W22.8XXA Striking against or struck by other objects, initial encounter; Y93.89 Activity, other specified; Y92.89 Other specified places as the place of occurrence of the external cause; Y99.8 Other external cause status

== ENCOUNTER → 2022-01-01 | Outpatient (CLI) | payer MEDICARE | END | disposition home or self-care (01) | LOC: LAB 06:54 | PROVIDERS: ATTEND Emergency Medicine | DX: E78.5 Hyperlipidemia, unspecified (principal); R73.9 Hyperglycemia, unspecified ==

== ENCOUNTER 2022-03-22 19:43 | Emergency (ER) | payer MEDICARE | END 2022-03-22 20:35 | disposition left against medical advice (07) | LOC: ED 19:43 | DX: Z53.21 Procedure and treatment not carried out due to patient leaving prior to being seen by health care provider (principal) ==

== ENCOUNTER 2022-03-24 08:27 | Emergency (ER) | payer MEDICARE ==
[~2022-03-24] VITALS: Ht 157.4 cm; Wt 91.6 kg
[2022-03-24] MEDS ORDERED: PRASUGREL HCL10 MG PO (08:52)
[2022-03-24 09:34] LABS: BASO # 0.1 10*3/uL (0.0-0.1); BASO % 0.7 % (0.0-1.0); EOS # 0.1 10*3/uL (0.0-0.4); EOS % 1.9 % (1.0-4.0); HEMATOCRIT 44.8 % (37.0-47.0); LYMPH # 1.8 10*3/uL (1.3-4.4); LYMPH % 25.9 % (27.0-41.0); MEAN CELL VOLUME 90.1 fl (81.0-99.0); MEAN CORPUSCULAR HGB CONC 33.3 g/dl (33.0-37.0); MEAN PLATELET VOLUME 8.7 fl (9.6-12.3); MONO # 0.7 10*3/uL (0.1-1.0); MONO % 10.2 % (3.0-9.0); NEUT # 4.2 10*3/uL (2.3-7.9); NEUT % 61.2 % (47.0-73.0); PLATELET COUNT AUTOMATED 356 10*3/uL (130-400); RED BLOOD COUNT 4.97 10*6/uL (4.10-5.10); RED CELL DISTRI WIDTH 13.2 % (0-14.5); WHITE BLOOD COUNT 6.9 10*3/uL (4.8-10.8)
[2022-03-24 09:48] LABS: ALKALINE PHOSPHATASE 124 U/L (45-117); BUN 12 mg/dl (7-24); CHLORIDE 113 mmol/L (98-107); CREATININE 0.86 mg/dL (0.55-1.02); LIPASE 129 U/L (73-393); POTASSIUM 4.1 mmol/L (3.5-5.1); SGOT/AST 24 IU/L (3-35); SGPT/ALT 23 U/L (12-78); SODIUM 141 mmol/L (136-145); TOTAL PROTEIN 7.4 gm/dL (6.4-8.2)
[2022-03-24 09:51] LABS: ACT PARTIAL THROMBO TIME 26.1 SECONDS (20.0-32.1); INTERNATIONAL NORM RATIO 0.9 (2.0-3.5)
[2022-03-24 10:22] LABS: BILIRUBIN Negative (Negative); BLOOD 3+ (Negative); CLARITY Clear (Clear); COLOR Yellow (Yellow); GLUCOSE Negative (Negative); KETONE Negative (Negative); LEUKO ESTERASE 1+ (Negative); NITRITE Negative (Negative); PH 6.5 (4.5-8.0); SPECIFIC GRAVITY <= 1.005 (1.001-1.030); UROBILINOGEN 0.2 E.U./dl (0.0-1.0)
[2022-03-24 10:35] LABS: BACTERIA TRACE
== END 2022-03-24 11:58 | disposition home or self-care (01) ==
LOC: ED 08:27
PROVIDERS: Emergency Medicine
DX: S30.1XXA Contusion of abdominal wall, initial encounter (principal); Z88.1 Allergy status to other antibiotic agents; Z79.899 Other long term (current) drug therapy; Z79.82 Long term (current) use of aspirin; Z98.51 Tubal ligation status; Z87.891 Personal history of nicotine dependence; X58.XXXA Exposure to other specified factors, initial encounter; Y93.89 Activity, other specified; Y92.89 Other specified places as the place of occurrence of the external cause; Y99.8 Other external cause status

== ENCOUNTER → 2022-08-11 | Outpatient (CLI) | payer MEDICARE ==
[~2022-08-11] MED LIST changes: +PRASUGREL HCL10 MG PO
[2022-08-11 07:50] LABS: BASO # 0.1 10*3/uL (0.0-0.1); BASO % 0.7 % (0.0-1.0); EOS # 0.1 10*3/uL (0.0-0.4); EOS % 0.8 % (1.0-4.0); HEMATOCRIT 45.1 % (37.0-47.0); LYMPH # 2.3 10*3/uL (1.3-4.4); LYMPH % 26.3 % (27.0-41.0); MEAN CELL VOLUME 95.1 fl (81.0-99.0); MEAN CORPUSCULAR HGB 31.6 pg (27.0-31.0); MEAN CORPUSCULAR HGB CONC 33.3 g/dl (33.0-37.0); MEAN PLATELET VOLUME 8.3 fl (9.6-12.3); MONO # 0.6 10*3/uL (0.1-1.0); MONO % 7.5 % (3.0-9.0); NEUT # 5.5 10*3/uL (2.3-7.9); NEUT % 64.2 % (47.0-73.0); PLATELET COUNT AUTOMATED 364 10*3/uL (130-400); RED BLOOD COUNT 4.74 10*6/uL (4.10-5.10); RED CELL DISTRI WIDTH 13.6 % (0-14.5); WHITE BLOOD COUNT 8.5 10*3/uL (4.8-10.8)
[2022-08-11 08:09] LABS: ALKALINE PHOSPHATASE 103 U/L (45-117); BUN 18 mg/dl (7-24); CHLORIDE 109 mmol/L (98-107); CHOLESTEROL 171 mg/dL (<200); CREATININE 1.07 mg/dL (0.55-1.02); LDL CHOLESTEROL 92 mg/dL (9-159); SGOT/AST 23 IU/L (3-35); SGPT/ALT 28 U/L (12-78); SODIUM 137 mmol/L (136-145); TOTAL PROTEIN 7.3 gm/dL (6.4-8.2); TRIGLYCERIDES 99 mg/dl (<150)
[2022-08-11 08:15] LABS: POTASSIUM 4.7 mmol/L (3.5-5.1)
== END | disposition home or self-care (01) ==
LOC: LAB 07:28
PROVIDERS: ATTEND Emergency Medicine
DX: I10 Essential (primary) hypertension (principal); E78.00 Pure hypercholesterolemia, unspecified; K76.0 Fatty (change of) liver, not elsewhere classified; R73.9 Hyperglycemia, unspecified

== ENCOUNTER → 2022-11-10 | Outpatient (CLI) | payer MEDICARE ==
[2022-11-10 08:27] LABS: BASO # 0.1 10*3/uL (0.0-0.1); BASO % 0.6 % (0.0-1.0); EOS # 0.1 10*3/uL (0.0-0.4); EOS % 1.6 % (1.0-4.0); HEMATOCRIT 44.8 % (37.0-47.0); LYMPH # 2.1 10*3/uL (1.3-4.4); LYMPH % 25.9 % (27.0-41.0); MEAN CELL VOLUME 93.9 fl (81.0-99.0); MEAN CORPUSCULAR HGB 30.8 pg (27.0-31.0); MEAN CORPUSCULAR HGB CONC 32.8 g/dl (33.0-37.0); MEAN PLATELET VOLUME 8.8 fl (9.6-12.3); MONO # 0.8 10*3/uL (0.1-1.0); MONO % 9.6 % (3.0-9.0); NEUT # 4.9 10*3/uL (2.3-7.9); NEUT % 61.8 % (47.0-73.0); PLATELET COUNT AUTOMATED 346 10*3/uL (130-400); RED BLOOD COUNT 4.77 10*6/uL (4.10-5.10)
[2022-11-10 08:42] LABS: ALKALINE PHOSPHATASE 103 U/L (46-116); BUN 11 mg/dl (9-23); CHLORIDE 106 mmol/L (98-107); CHOLESTEROL 154 mg/dL (<200); LDL CHOLESTEROL 83 mg/dL (9-159); POTASSIUM 4.1 mmol/L (3.4-5.1); SGPT/ALT 25 U/L (10-49); TOTAL PROTEIN 7.1 gm/dL (6.0-8.0); TRIGLYCERIDES 119 mg/dl (<150)
== END | disposition home or self-care (01) ==
LOC: LAB 07:46
PROVIDERS: ATTEND Emergency Medicine
DX: I10 Essential (primary) hypertension (principal); E78.00 Pure hypercholesterolemia, unspecified; K76.0 Fatty (change of) liver, not elsewhere classified; R73.03 Prediabetes

== ENCOUNTER → 2023-01-29 | Outpatient (CLI) | payer MEDICARE ==
[2023-01-29 08:22] LABS: CHOLESTEROL 161 mg/dL (<200); LDL CHOLESTEROL 90 mg/dL (9-159); TRIGLYCERIDES 111 mg/dl (<150)
== END | disposition home or self-care (01) ==
LOC: LAB 07:03
PROVIDERS: ATTEND Internal Medicine
DX: E78.5 Hyperlipidemia, unspecified (principal)

== ENCOUNTER → 2023-03-16 | Outpatient (CLI) | payer MEDICARE ==
[2023-03-16 08:16] LABS: THYROID STIM HORMONE (HS) 2.652 uIU/ml (0.550-4.780); THYROXINE (T4) TOTAL 8.1 ug/dl (4.5-10.9)
== END | disposition home or self-care (01) ==
LOC: LAB 07:07
PROVIDERS: ATTEND Emergency Medicine
DX: E03.9 Hypothyroidism, unspecified (principal)

== ENCOUNTER 2023-06-16 17:29 | Emergency (ER) | payer MEDICARE ==
[~2023-06-16] VITALS: Ht 154.9 cm; Wt 77.1 kg
[2023-06-16 18:14] LABS: BASO # 0.1 10*3/uL (0.0-0.1); BASO % 0.5 % (0.0-1.0); EOS # 0.4 10*3/uL (0.0-0.4); EOS % 2.5 % (1.0-4.0); HEMATOCRIT 41.4 % (37.0-47.0); LYMPH # 2.2 10*3/uL (1.3-4.4); LYMPH % 14.5 % (27.0-41.0); MEAN CELL VOLUME 92.2 fl (81.0-99.0); MEAN CORPUSCULAR HGB 31.6 pg (27.0-31.0); MEAN CORPUSCULAR HGB CONC 34.3 g/dl (33.0-37.0); MEAN PLATELET VOLUME 9.1 fl (9.6-12.3); MONO % 6.8 % (3.0-9.0); NEUT # 11.2 10*3/uL (2.3-7.9); NEUT % 75.3 % (47.0-73.0); PLATELET COUNT AUTOMATED 324 10*3/uL (130-400); RED BLOOD COUNT 4.49 10*6/uL (4.10-5.10); RED CELL DISTRI WIDTH 13.3 % (0-14.5); WHITE BLOOD COUNT 14.9 10*3/uL (4.8-10.8)
[2023-06-16 18:26] LABS: ACT PARTIAL THROMBO TIME 27.2 SECONDS (20.0-32.1)
[2023-06-16 18:36] LABS: ALKALINE PHOSPHATASE 113 U/L (46-116); BUN 9 mg/dl (9-23); CHLORIDE 107 mmol/L (98-107); LIPASE 33 U/L (12-53); POTASSIUM 3.4 mmol/L (3.4-5.1); SGPT/ALT 24 U/L (10-49); TOTAL PROTEIN 6.8 gm/dL (6.0-8.0)
[2023-06-16 19:37] LABS: BILIRUBIN Negative (Negative); BLOOD 3+ (Negative); CLARITY Turbid (Clear); COLOR Yellow (Yellow); GLUCOSE Negative (Negative); KETONE Negative (Negative); LEUKO ESTERASE 3+ (Negative); NITRITE Negative (Negative); PH 5.5 (4.5-8.0); UROBILINOGEN 0.2 E.U./dl (0.0-1.0)
[2023-06-16 20:05] LABS: BACTERIA 2+; EPITHELIAL CELLS 0-2; RBC 0-2 rbc/hpf (0-2); WBC TNTC wbc/hpf (0-5)
[2023-06-16] MEDS ORDERED: SEPTDS PO (20:32)
== END 2023-06-16 20:54 | disposition home or self-care (01) ==
LOC: ED 17:29
PROVIDERS: Emergency Medicine
DX: N39.0 Urinary tract infection, site not specified (principal); I10 Essential (primary) hypertension; K21.9 Gastro-esophageal reflux disease without esophagitis; F41.9 Anxiety disorder, unspecified; F32.A Depression, unspecified; E78.00 Pure hypercholesterolemia, unspecified; Z88.5 Allergy status to narcotic agent; Z88.1 Allergy status to other antibiotic agents; Z98.51 Tubal ligation status; Z98.890 Other specified postprocedural states; Z87.891 Personal history of nicotine dependence

== ENCOUNTER → 2023-07-17 | Outpatient (CLI) | payer MEDICARE ==
[2023-07-17 08:13] LABS: BASO # 0.1 10*3/uL (0.0-0.1); BASO % 0.9 % (0.0-1.0); EOS # 1.3 10*3/uL (0.0-0.4); EOS % 12.4 % (1.0-4.0); HEMATOCRIT 44.2 % (37.0-47.0); LYMPH # 2.3 10*3/uL (1.3-4.4); LYMPH % 21.8 % (27.0-41.0); MEAN CELL VOLUME 91.9 fl (81.0-99.0); MEAN CORPUSCULAR HGB CONC 33.7 g/dl (33.0-37.0); MONO # 0.8 10*3/uL (0.1-1.0); NEUT % 56.7 % (47.0-73.0); PLATELET COUNT AUTOMATED 342 10*3/uL (130-400); RED BLOOD COUNT 4.81 10*6/uL (4.10-5.10); RED CELL DISTRI WIDTH 13.6 % (0-14.5); WHITE BLOOD COUNT 10.5 10*3/uL (4.8-10.8)
[2023-07-17 08:41] LABS: ALKALINE PHOSPHATASE 118 U/L (46-116); BUN 6 mg/dl (9-23); CHLORIDE 107 mmol/L (98-107); CHOLESTEROL 147 mg/dL (<200); LDL CHOLESTEROL 83 mg/dL (9-159); POTASSIUM 3.9 mmol/L (3.4-5.1); SGPT/ALT 23 U/L (10-49); TOTAL PROTEIN 7.2 gm/dL (6.0-8.0); TRIGLYCERIDES 104 mg/dl (<150)
== END | disposition home or self-care (01) ==
LOC: LAB 07:34
PROVIDERS: Emergency Medicine; ATTEND Internal Medicine
DX: M25.561 Pain in right knee (principal); E78.2 Mixed hyperlipidemia; I10 Essential (primary) hypertension; R73.03 Prediabetes; E78.49 Other hyperlipidemia

== ENCOUNTER → 2023-09-22 | Outpatient (CLI) | payer MEDICARE | END | disposition home or self-care (01) | LOC: CT 14:42 | PROVIDERS: ATTEND Specialist | DX: J32.0 Chronic maxillary sinusitis (principal); M26.19 Other specified anomalies of jaw-cranial base relationship; J32.2 Chronic ethmoidal sinusitis ==

== ENCOUNTER 2023-10-05 15:15 | Emergency (ER) | payer MEDICARE ==
[~2023-10-05] VITALS: Ht 157.4 cm; Wt 95.3 kg
[2023-10-05 16:06] LABS: BASO # 0.1 10*3/uL (0.0-0.1); BASO % 0.6 % (0.0-1.0); EOS # 0.2 10*3/uL (0.0-0.4); EOS % 2.2 % (1.0-4.0); HEMATOCRIT 43.4 % (37.0-47.0); LYMPH # 0.7 10*3/uL (1.3-4.4); LYMPH % 7.8 % (27.0-41.0); MEAN CELL VOLUME 94.3 fl (81.0-99.0); MEAN CORPUSCULAR HGB 30.9 pg (27.0-31.0); MEAN CORPUSCULAR HGB CONC 32.7 g/dl (33.0-37.0); MEAN PLATELET VOLUME 8.6 fl (9.6-12.3); MONO % 11.7 % (3.0-9.0); NEUT # 6.5 10*3/uL (2.3-7.9); NEUT % 77.5 % (47.0-73.0); PLATELET COUNT AUTOMATED 288 10*3/uL (130-400); RED CELL DISTRI WIDTH 13.3 % (0-14.5); WHITE BLOOD COUNT 8.3 10*3/uL (4.8-10.8)
[2023-10-05 16:19] LABS: ACT PARTIAL THROMBO TIME 28.7 SECONDS (20.0-32.1)
[2023-10-05 16:25] LABS: ALKALINE PHOSPHATASE 120 U/L (46-116); BUN 14 mg/dl (9-23); CHLORIDE 104 mmol/L (98-107); LIPASE 38 U/L (12-53); POTASSIUM 3.8 mmol/L (3.4-5.1); SGPT/ALT 25 U/L (5-49); TOTAL PROTEIN 7.2 gm/dL (6.0-8.0)
== END 2023-10-05 17:51 | disposition home or self-care (01) ==
LOC: ED 15:15
PROVIDERS: Internal Medicine
DX: R05.9 Cough, unspecified (principal); I10 Essential (primary) hypertension; K21.9 Gastro-esophageal reflux disease without esophagitis; F41.9 Anxiety disorder, unspecified; F32.A Depression, unspecified; R10.2 Pelvic and perineal pain; E78.00 Pure hypercholesterolemia, unspecified; Z88.1 Allergy status to other antibiotic agents; Z88.5 Allergy status to narcotic agent; Z98.51 Tubal ligation status; Z98.890 Other specified postprocedural states; Z87.891 Personal history of nicotine dependence; Z20.822 Contact with and (suspected) exposure to COVID-19

== ENCOUNTER 2023-10-06 15:11 | Emergency (ER) | payer MEDICARE ==
[~2023-10-06] VITALS: Ht 157.4 cm; Wt 95.3 kg
== END 2023-10-06 17:07 | disposition left against medical advice (07) ==
LOC: ED 15:11
DX: R07.89 Other chest pain (principal); I10 Essential (primary) hypertension; K21.9 Gastro-esophageal reflux disease without esophagitis; F41.9 Anxiety disorder, unspecified; F32.A Depression, unspecified; E78.00 Pure hypercholesterolemia, unspecified; Z88.5 Allergy status to narcotic agent; Z88.1 Allergy status to other antibiotic agents; Z53.21 Procedure and treatment not carried out due to patient leaving prior to being seen by health care provider

== ENCOUNTER → 2024-03-15 | Outpatient (CLI) | payer MEDICARE ==
[2024-03-15 07:42] LABS: BASO # 0.1 10*3/uL (0.0-0.1); BASO % 0.7 % (0.0-1.0); EOS # 0.4 10*3/uL (0.0-0.4); EOS % 4.2 % (1.0-4.0); HEMATOCRIT 45.1 % (37.0-47.0); MEAN CORPUSCULAR HGB 30.7 pg (27.0-31.0); MEAN PLATELET VOLUME 8.8 fl (9.6-12.3); MONO # 0.9 10*3/uL (0.1-1.0); MONO % 8.9 % (3.0-9.0); NEUT # 6.7 10*3/uL (2.3-7.9); NEUT % 65.9 % (47.0-73.0); PLATELET COUNT AUTOMATED 358 10*3/uL (130-400); RED BLOOD COUNT 4.85 10*6/uL (4.10-5.10); RED CELL DISTRI WIDTH 13.2 % (0-14.5); WHITE BLOOD COUNT 10.2 10*3/uL (4.8-10.8)
[2024-03-15 09:15] LABS: ALKALINE PHOSPHATASE 116 U/L (46-116); BUN 10 mg/dl (9-23); CHLORIDE 106 mmol/L (98-107); CHOLESTEROL 170 mg/dL (<200); LDL CHOLESTEROL 105 mg/dL (9-159); POTASSIUM 3.7 mmol/L (3.4-5.1); SGPT/ALT 23 U/L (5-49); TOTAL PROTEIN 7.1 gm/dL (6.0-8.0); TRIGLYCERIDES 134 mg/dl (<150)
== END | disposition home or self-care (01) ==
LOC: LAB 07:16
PROVIDERS: ATTEND Emergency Medicine
DX: I10 Essential (primary) hypertension (principal); K76.0 Fatty (change of) liver, not elsewhere classified; E78.2 Mixed hyperlipidemia; F41.9 Anxiety disorder, unspecified; M54.16 Radiculopathy, lumbar region; R73.03 Prediabetes

== ENCOUNTER → 2024-03-23 | Outpatient (CLI) | payer MEDICARE | END | disposition home or self-care (01) | LOC: RAD 15:12 | PROVIDERS: ATTEND Emergency Medicine | DX: G62.9 Polyneuropathy, unspecified (principal) ==

== ENCOUNTER → 2024-06-20 | Outpatient (CLI) | payer MEDICARE ==
[2024-06-20 07:27] LABS: BASO # 0.1 10*3/uL (0.0-0.1); BASO % 0.8 % (0.0-1.0); EOS # 0.3 10*3/uL (0.0-0.4); EOS % 3.2 % (1.0-4.0); HEMATOCRIT 45.8 % (37.0-47.0); LYMPH # 2.4 10*3/uL (1.3-4.4); LYMPH % 25.8 % (27.0-41.0); MEAN CELL VOLUME 94.4 fl (81.0-99.0); MEAN CORPUSCULAR HGB 30.7 pg (27.0-31.0); MEAN CORPUSCULAR HGB CONC 32.5 g/dl (33.0-37.0); MEAN PLATELET VOLUME 8.7 fl (9.6-12.3); MONO # 0.8 10*3/uL (0.1-1.0); MONO % 8.9 % (3.0-9.0); NEUT # 5.6 10*3/uL (2.3-7.9); NEUT % 60.9 % (47.0-73.0); PLATELET COUNT AUTOMATED 322 10*3/uL (130-400); RED BLOOD COUNT 4.85 10*6/uL (4.10-5.10); RED CELL DISTRI WIDTH 13.5 % (0-14.5); WHITE BLOOD COUNT 9.1 10*3/uL (4.8-10.8)
[2024-06-20 08:07] LABS: ALKALINE PHOSPHATASE 110 U/L (46-116); BUN 14 mg/dl (9-23); CHLORIDE 108 mmol/L (98-107); CHOLESTEROL 159 mg/dL (<200); LDL CHOLESTEROL 90 mg/dL (9-159); POTASSIUM 4.1 mmol/L (3.4-5.1); SGPT/ALT 22 U/L (5-49); TOTAL PROTEIN 7.4 gm/dL (6.0-8.0); TRIGLYCERIDES 88 mg/dl (<150)
== END | disposition home or self-care (01) ==
LOC: LAB 07:12
PROVIDERS: ATTEND Emergency Medicine
DX: I10 Essential (primary) hypertension (principal); R73.03 Prediabetes; K76.0 Fatty (change of) liver, not elsewhere classified; E78.2 Mixed hyperlipidemia; E55.9 Vitamin D deficiency, unspecified

== ENCOUNTER → 2024-12-05 | Outpatient (CLI) | payer MEDICARE ==
[2024-12-05 10:52] LABS: CHOLESTEROL 135 mg/dL (<200); LDL CHOLESTEROL 67 mg/dL (9-159); TRIGLYCERIDES 117 mg/dl (<150)
== END | disposition home or self-care (01) ==
LOC: LAB 10:13
PROVIDERS: ATTEND Nurse Practitioner Family
DX: I25.10 Atherosclerotic heart disease of native coronary artery without angina pectoris (principal)

== ENCOUNTER → 2025-01-06 | Outpatient (CLI) | payer MEDICARE ==
[2025-01-06 07:59] LABS: BASO # 0.1 10*3/uL (0.0-0.1); BASO % 0.8 % (0.0-1.0); EOS # 0.4 10*3/uL (0.0-0.4); HEMATOCRIT 45.2 % (37.0-47.0); MEAN CELL VOLUME 93.6 fl (81.0-99.0); MEAN CORPUSCULAR HGB 30.6 pg (27.0-31.0); MEAN CORPUSCULAR HGB CONC 32.7 g/dl (33.0-37.0); MONO # 0.8 10*3/uL (0.1-1.0); MONO % 8.9 % (3.0-9.0); NEUT # 5.1 10*3/uL (2.3-7.9); NEUT % 58.8 % (47.0-73.0); PLATELET COUNT AUTOMATED 317 10*3/uL (130-400); RED BLOOD COUNT 4.83 10*6/uL (4.10-5.10); RED CELL DISTRI WIDTH 13.3 % (0-14.5); WHITE BLOOD COUNT 8.7 10*3/uL (4.8-10.8)
[2025-01-06 08:53] LABS: BUN 11 mg/dl (9-23); CHLORIDE 107 mmol/L (98-107); POTASSIUM 3.8 mmol/L (3.4-5.1)
== END | disposition home or self-care (01) ==
LOC: LAB 07:44
PROVIDERS: ATTEND Physician Assistant Medical
DX: Z01.812 Encounter for preprocedural laboratory examination (principal); M17.11 Unilateral primary osteoarthritis, right knee; R73.03 Prediabetes

== ENCOUNTER → 2025-05-23 | Outpatient (CLI) | payer MEDICARE | END | disposition home or self-care (01) | LOC: WOUNDCARE 04:13 | PROVIDERS: ATTEND Nurse Practitioner Family | DX: L02.213 Cutaneous abscess of chest wall (principal); L72.0 Epidermal cyst; I10 Essential (primary) hypertension; E78.5 Hyperlipidemia, unspecified; Z98.890 Other specified postprocedural states; Z79.82 Long term (current) use of aspirin; Z79.899 Other long term (current) drug therapy ==

== ENCOUNTER 2025-07-26 10:29 | Inpatient (IN) | payer MEDICARE ==
[~2025-07-26] VITALS: Ht 157.5 cm; Wt 103.9 kg
[2025-07-26] MEDS ORDERED: SODIUM CHLORIDE 0.9% 1,000 ML IV ONE ×2 (11:00→13:40)
[2025-07-26 11:01] VITALS: BP 87/38; BP 92/56
[2025-07-26 11:20] LABS: BASO # 0.0 10*3/uL (0.0-0.1); BASO % 0.2 % (0.0-1.0); EOS # 0.1 10*3/uL (0.0-0.4); EOS % 0.9 % (1.0-4.0); MEAN CELL VOLUME 94.6 fl (81.0-99.0); MEAN CORPUSCULAR HGB 31.0 pg (27.0-31.0); MEAN PLATELET VOLUME 9.1 fl (9.6-12.3); MONO # 1.1 10*3/uL (0.1-1.0); MONO % 7.3 % (3.0-9.0); NEUT # 12.1 10*3/uL (2.3-7.9); NEUT % 83.7 % (47.0-73.0); NUCLEATED RED BLOOD CELL 0.0 % (0.0-0.0); NUCLEATED RED BLOOD CELL 0.0 10*3/uL (0.0-0.0); PLATELET COUNT AUTOMATED 301 10*3/uL (130-400); RED CELL DISTRI WIDTH 13.6 % (0-14.5)
[2025-07-26 11:38] LABS: BUN 21.0 mg/dl (9-23)
[2025-07-26 12:05] LABS: BILIRUBIN Negative (Negative); BLOOD Negative (Negative); CLARITY Cloudy (Clear); COLOR Dark Yellow (Yellow); KETONE Trace (Negative); LEUKO ESTERASE 2+ (Negative); NITRITE Negative (Negative); PH 5.0 (4.5-8.0); SPECIFIC GRAVITY 1.025 (1.001-1.030); UROBILINOGEN 1.0 E.U./dl (0.0-1.0)
[2025-07-26 12:16] LABS: BACTERIA 2+; EPITHELIAL CELLS 31-40; MUCOUS 2+; WBC 31-40 wbc/hpf (0-5)
[2025-07-26] MEDS ORDERED: BISACODYL 10 MG SUPP R PRN (13:40)
[2025-07-26] MEDS ORDERED: ACETAMINOPHEN 325 MG TAB PO PRN (13:40)
[2025-07-26] MEDS ORDERED: ACETAMINOPHEN 650 MG SUPP R PRN (13:40)
[2025-07-26] MEDS ORDERED: BISACODYL 5 MG TAB PO PRN (13:40)
[2025-07-26] MEDS ORDERED: diazePAM 10 MG/2 ML SYR IV PRN (13:40)
[2025-07-26] MEDS ORDERED: LORazepam 0.5 MG TAB PO PRN (14:35)
[2025-07-26 14:49] VITALS: BP 118/53
[2025-07-26 15:00] VITALS: BP 103/43
[2025-07-26] MEDS ORDERED: PRILOSEC20 M1 PO (15:09)
[2025-07-26] MEDS ORDERED: HYDROCODONE-AC1 EAC1 PO (15:10)
[2025-07-26] MEDS ORDERED: POTASSIUM99 M7 PO (15:11)
[2025-07-26] MEDS ORDERED: ROSUVASTATIN CA10 MG PO (15:12)
[2025-07-26] MEDS ORDERED: SODIUM CHLORIDE 0.9% 1,000 ML IV SCH (19:20)
[2025-07-26 20:00] VITALS: BP 148/61
[2025-07-26] MEDS ORDERED: diazePAM 10 MG/2 ML SYR IV ONE (22:10)
[2025-07-27] VITALS: BP 108/69
[2025-07-27 06:30] LABS: BASO # 0.0 10*3/uL (0.0-0.1); BASO % 0.3 % (0.0-1.0); EOS # 0.0 10*3/uL (0.0-0.4); EOS % 0.3 % (1.0-4.0); MEAN CELL VOLUME 95.0 fl (81.0-99.0); MEAN CORPUSCULAR HGB 31.0 pg (27.0-31.0); MEAN PLATELET VOLUME 9.2 fl (9.6-12.3); MONO # 0.6 10*3/uL (0.1-1.0); MONO % 5.7 % (3.0-9.0); NEUT # 9.3 10*3/uL (2.3-7.9); NEUT % 89.3 % (47.0-73.0); NUCLEATED RED BLOOD CELL 0.0 % (0.0-0.0); NUCLEATED RED BLOOD CELL 0.0 10*3/uL (0.0-0.0); PLATELET COUNT AUTOMATED 233 10*3/uL (130-400); RED CELL DISTRI WIDTH 13.7 % (0-14.5)
[2025-07-27 06:54] LABS: BUN 15 mg/dl (9-23); FREE T4 1.22 ng/dl (0.89-1.76); SGPT/ALT 37 U/L (5-49)
[2025-07-27] MEDS ORDERED: OMEPRAZOLE 20 MG CAP PO SCH (07:30)
[2025-07-27 07:47] LABS: VITAMIN D, 25-HYDROXY 45.0 ng/mL (30-100)
[2025-07-27 08:00] VITALS: BP 126/65
[2025-07-27] MEDS ORDERED: ASPIRIN ENTERIC COATED 81 MG TAB PO SCH (10:00)
[2025-07-27] MEDS ORDERED: METOPROLOL SUCCINATE XR 50 MG TAB PO SCH (10:00)
[2025-07-27] MEDS ORDERED: METOPROLOL TART50 M1 PO (10:04)
[2025-07-27 12:00] VITALS: BP 130/46
[2025-07-27] MEDS ORDERED: Phosphorus/Potassium 1.45 GM PACKET PO SCH (12:00)
[2025-07-27 16:00] VITALS: BP 140/63
[2025-07-27 20:00] VITALS: BP 138/88
[2025-07-27] MEDS ORDERED: METOPROLOL SUCCINATE XR 25 MG TAB PO SCH (22:00)
[2025-07-28] VITALS: BP 149/79
[2025-07-28] MEDS ORDERED: Ondansetron Hydrochloride 4 MG/2 ML VIAL IV PRN (02:45)
[2025-07-28 06:10] LABS: BASO # 0.0 10*3/uL (0.0-0.1); BASO % 0.4 % (0.0-1.0); EOS # 0.2 10*3/uL (0.0-0.4); EOS % 2.1 % (1.0-4.0); MEAN CELL VOLUME 95.5 fl (81.0-99.0); MEAN CORPUSCULAR HGB 30.8 pg (27.0-31.0); MEAN PLATELET VOLUME 9.2 fl (9.6-12.3); MONO # 0.8 10*3/uL (0.1-1.0); MONO % 9.0 % (3.0-9.0); NEUT # 7.4 10*3/uL (2.3-7.9); NEUT % 81.1 % (47.0-73.0); NUCLEATED RED BLOOD CELL 0.0 % (0.0-0.0); NUCLEATED RED BLOOD CELL 0.0 10*3/uL (0.0-0.0); PLATELET COUNT AUTOMATED 200 10*3/uL (130-400); RED CELL DISTRI WIDTH 13.4 % (0-14.5)
[2025-07-28 08:00] VITALS: BP 151/85
[2025-07-28 08:26] LABS: BUN 10 mg/dl (9-23); SGPT/ALT 95 U/L (5-49)
[2025-07-28 11:44] VITALS: BP 147/76
[2025-07-28 16:00] VITALS: BP 130/55
[2025-07-28 20:00] VITALS: BP 160/79
[2025-07-29] VITALS: BP 138/69
[2025-07-29 05:08] LABS: BUN 8 mg/dl (9-23)
[2025-07-29 06:10] LABS: BASO # 0.0 10*3/uL (0.0-0.1); BASO % 0.4 % (0.0-1.0); EOS # 0.3 10*3/uL (0.0-0.4); EOS % 3.9 % (1.0-4.0); MEAN CELL VOLUME 98.0 fl (81.0-99.0); MEAN CORPUSCULAR HGB 31.0 pg (27.0-31.0); MEAN PLATELET VOLUME 10.1 fl (9.6-12.3); MONO # 1.1 10*3/uL (0.1-1.0); MONO % 12.8 % (3.0-9.0); NEUT # 5.8 10*3/uL (2.3-7.9); NEUT % 67.6 % (47.0-73.0); NUCLEATED RED BLOOD CELL 0.0 % (0.0-0.0); NUCLEATED RED BLOOD CELL 0.0 10*3/uL (0.0-0.0); PLATELET COUNT AUTOMATED 205 10*3/uL (130-400); RED CELL DISTRI WIDTH 13.6 % (0-14.5)
[2025-07-29 08:00] VITALS: BP 163/75
[2025-07-29 12:00] VITALS: BP 151/90
[2025-07-29 16:00] VITALS: BP 154/87
[2025-07-29 20:00] VITALS: BP 155/81
[2025-07-30] VITALS: BP 164/75
[2025-07-30] MEDS ORDERED: Vancomycin Hydrochloride 2,000 MG in SODIUM CHLORIDE 0.9% 500 ML IV ONE (00:55)
[2025-07-30 08:00] VITALS: BP 152/84
[2025-07-30 09:30] LABS: BASO # 0.0 10*3/uL (0.0-0.1); BASO % 0.4 % (0.0-1.0); EOS # 0.3 10*3/uL (0.0-0.4); EOS % 3.7 % (1.0-4.0); MEAN CORPUSCULAR HGB 31.1 pg (27.0-31.0); MEAN PLATELET VOLUME 9.1 fl (9.6-12.3); MONO # 0.9 10*3/uL (0.1-1.0); MONO % 9.1 % (3.0-9.0); NEUT # 6.6 10*3/uL (2.3-7.9); NEUT % 71.1 % (47.0-73.0); NUCLEATED RED BLOOD CELL 0.0 % (0.0-0.0); NUCLEATED RED BLOOD CELL 0.0 10*3/uL (0.0-0.0); PLATELET COUNT AUTOMATED 264 10*3/uL (130-400); RED CELL DISTRI WIDTH 13.7 % (0-14.5)
[2025-07-30 09:41] LABS: MEAN CELL VOLUME 93.8 fl (81.0-99.0)
[2025-07-30 09:49] LABS: BUN 10 mg/dl (9-23)
[2025-07-30 12:00] VITALS: BP 147/77
[2025-07-30 16:00] VITALS: BP 155/91
[2025-07-30 20:00] VITALS: BP 165/89
[2025-07-31] VITALS: BP 108/75; BP 164/95
[2025-07-31 05:23] LABS: BUN 12 mg/dl (9-23)
[2025-07-31 06:29] LABS: BASO # 0.1 10*3/uL (0.0-0.1); BASO % 0.8 % (0.0-1.0); EOS # 0.4 10*3/uL (0.0-0.4); EOS % 3.6 % (1.0-4.0); MEAN CELL VOLUME 94.6 fl (81.0-99.0); MEAN CORPUSCULAR HGB 30.7 pg (27.0-31.0); MEAN PLATELET VOLUME 9.5 fl (9.6-12.3); MONO # 1.1 10*3/uL (0.1-1.0); MONO % 10.5 % (3.0-9.0); NEUT # 6.7 10*3/uL (2.3-7.9); NEUT % 65.2 % (47.0-73.0); NUCLEATED RED BLOOD CELL 0.0 % (0.0-0.0); NUCLEATED RED BLOOD CELL 0.0 10*3/uL (0.0-0.0); PLATELET COUNT AUTOMATED 299 10*3/uL (130-400); RED CELL DISTRI WIDTH 13.7 % (0-14.5)
[2025-07-31] MEDS ORDERED: COZAAR50 M1 PO (10:35)
[2025-07-31] MEDS ORDERED: LORAZEPAM0.5 M1 PO (10:41)
== END 2025-07-31 17:05 | DRG 871 ==
LOC: ED 10:29 → EDHOLD 12:35 → 5E 12:35
PROVIDERS: Emergency Medicine; Student in an Organized Health Care Education/Training Program; ADMIT Family Medicine; ATTEND Family Medicine
DX: A41.9 Sepsis, unspecified organism (principal); N17.0 Acute kidney failure with tubular necrosis; N30.00 Acute cystitis without hematuria; F41.1 Generalized anxiety disorder; I10 Essential (primary) hypertension; E78.5 Hyperlipidemia, unspecified; K21.9 Gastro-esophageal reflux disease without esophagitis; R73.03 Prediabetes; R73.9 Hyperglycemia, unspecified; R82.71 Bacteriuria; F43.0 Acute stress reaction; R65.20 Severe sepsis without septic shock; Z88.8 Allergy status to other drugs, medicaments and biological substances; Z98.51 Tubal ligation status; Z87.891 Personal history of nicotine dependence; Z83.3 Family history of diabetes mellitus; Z80.0 Family history of malignant neoplasm of digestive organs; Z82.49 Family history of ischemic heart disease and other diseases of the circulatory system

== ENCOUNTER 2025-08-18 09:06 | Inpatient (IN) | payer MEDICARE ==
[~2025-08-18] VITALS: Ht 157.4 cm; Wt 103.0 kg
[~2025-08-18 09:06] MED LIST changes: +COZAAR50 M1 PO; +HYDROCODONE-AC1 EAC1 PO; +LORAZEPAM0.5 M1 PO; +POTASSIUM99 M7 PO; +PRILOSEC20 M1 PO; +ROSUVASTATIN CA10 MG PO
[2025-08-18 09:20] VITALS: BP 118/61
[2025-08-18] MEDS ORDERED: ACETAMINOPHEN 100 ML IV ONE (09:35)
[2025-08-18] MEDS ORDERED: Ondansetron Hydrochloride 4 MG/2 ML VIAL IV ONE (09:35)
[2025-08-18] MEDS ORDERED: SODIUM CHLORIDE 0.9% 1,000 ML IV ONE ×3 (09:35→13:15)
[2025-08-18 10:01] LABS: MEAN CELL VOLUME 95.6 fl (81.0-99.0); MEAN CORPUSCULAR HGB 30.7 pg (27.0-31.0); MEAN PLATELET VOLUME 8.7 fl (9.6-12.3); NUCLEATED RED BLOOD CELL 0.0 % (0.0-0.0); NUCLEATED RED BLOOD CELL 0.0 10*3/uL (0.0-0.0); PLATELET COUNT AUTOMATED 289 10*3/uL (130-400); RED CELL DISTRI WIDTH 14.0 % (0-14.5)
[2025-08-18 10:27] LABS: MANUAL DIFF REFLEX YES
[2025-08-18 10:28] LABS: BUN 15 mg/dl (9-23)
[2025-08-18 10:32] LABS: PLATELET SUFFICIENCY NORMAL (NORMAL)
[2025-08-18 12:03] LABS: BILIRUBIN 1+ (Negative); BLOOD 1+ (Negative); CLARITY Cloudy (Clear); COLOR Dark Yellow (Yellow); KETONE 1+ (Negative); LEUKO ESTERASE Trace (Negative); NITRITE Negative (Negative); PH 5.5 (4.5-8.0); SPECIFIC GRAVITY >= 1.030 (1.001-1.030); UROBILINOGEN 1.0 E.U./dl (0.0-1.0)
[2025-08-18 12:39] LABS: BACTERIA 4+
[2025-08-18] MEDS ORDERED: ACETAMINOPHEN 325 MG TAB PO PRN (13:05)
[2025-08-18] MEDS ORDERED: BISACODYL 5 MG TAB PO PRN (13:05)
[2025-08-18] MEDS ORDERED: AZITHROMYCIN 250 ML IV SCH (13:15)
[2025-08-18] MEDS ORDERED: Albuterol Sulf/Ipratropium 3 ML VIAL NEB SCH (13:15)
[2025-08-18 13:41] VITALS: BP 121/64
[2025-08-18 20:00] VITALS: BP 143/71
[2025-08-19] VITALS: BP 165/95
[2025-08-19 05:47] LABS: BUN 15 mg/dl (9-23); SGPT/ALT 164 U/L (5-49)
[2025-08-19 06:19] LABS: MANUAL DIFF REFLEX YES; MEAN CELL VOLUME 94.9 fl (81.0-99.0); MEAN CORPUSCULAR HGB 30.7 pg (27.0-31.0); MEAN PLATELET VOLUME 9.3 fl (9.6-12.3); NUCLEATED RED BLOOD CELL 0.0 % (0.0-0.0); NUCLEATED RED BLOOD CELL 0.0 10*3/uL (0.0-0.0); PLATELET COUNT AUTOMATED 285 10*3/uL (130-400); RED CELL DISTRI WIDTH 13.7 % (0-14.5)
[2025-08-19 07:08] LABS: PLATELET SUFFICIENCY NORMAL (NORMAL)
[2025-08-19 08:00] VITALS: BP 137/48
[2025-08-19] MEDS ORDERED: Water, Sterile 10 ML VIAL ONE (08:45)
[2025-08-19] MEDS ORDERED: Albuterol Sulf/Ipratropium 3 ML VIAL NEB PRN (09:00)
[2025-08-19] MEDS ORDERED: ATORVASTATIN CALCIUM 10 MG TAB PO SCH (10:00)
[2025-08-19] MEDS ORDERED: ASPIRIN ENTERIC COATED 81 MG TAB PO SCH (10:00)
[2025-08-19] MEDS ORDERED: metroNIDAZOLE 500 MG TAB PO SCH (10:00)
[2025-08-19 12:00] VITALS: BP 124/74
[2025-08-19] MEDS ORDERED: Piperacillin Sodium/Tazobact 4.5 GM in SODIUM CHLORIDE 0.9% 100 ML IV SCH (12:30)
[2025-08-19 16:00] VITALS: BP 124/74
[2025-08-20] VITALS: BP 144/90
[2025-08-20 06:20] LABS: MEAN CELL VOLUME 93.2 fl (81.0-99.0); MEAN CORPUSCULAR HGB 30.3 pg (27.0-31.0); MEAN PLATELET VOLUME 9.7 fl (9.6-12.3); NUCLEATED RED BLOOD CELL 0.0 % (0.0-0.0); NUCLEATED RED BLOOD CELL 0.0 10*3/uL (0.0-0.0); PLATELET COUNT AUTOMATED 297 10*3/uL (130-400); RED CELL DISTRI WIDTH 13.6 % (0-14.5)
[2025-08-20 06:29] LABS: MANUAL DIFF REFLEX YES
[2025-08-20 07:30] LABS: PLATELET SUFFICIENCY NORMAL (NORMAL)
[2025-08-20 08:00] VITALS: BP 151/88
[2025-08-20 09:47] LABS: BUN 15 mg/dl (9-23); SGPT/ALT 126 U/L (5-49)
[2025-08-20 12:00] VITALS: BP 140/64
[2025-08-20] MEDS ORDERED: CEFEPIME HCL IN DEXTROSE 5 % 50 ML IV SCH (14:00)
[2025-08-20 16:00] VITALS: BP 135/79
[2025-08-20 20:00] VITALS: BP 176/103
[2025-08-21] VITALS: BP 168/87
[2025-08-21 06:01] LABS: BUN 11 mg/dl (9-23)
[2025-08-21 06:17] LABS: MEAN CELL VOLUME 90.6 fl (81.0-99.0); MEAN CORPUSCULAR HGB 30.4 pg (27.0-31.0); MEAN PLATELET VOLUME 9.4 fl (9.6-12.3); NUCLEATED RED BLOOD CELL 0.0 % (0.0-0.0); NUCLEATED RED BLOOD CELL 0.0 10*3/uL (0.0-0.0); PLATELET COUNT AUTOMATED 288 10*3/uL (130-400); RED CELL DISTRI WIDTH 13.8 % (0-14.5)
[2025-08-21 06:29] LABS: MANUAL DIFF REFLEX YES
[2025-08-21 07:38] LABS: PLATELET SUFFICIENCY NORMAL (NORMAL)
[2025-08-21 08:00] VITALS: BP 153/87
[2025-08-21 11:43] VITALS: BP 126/60
[2025-08-21 16:00] VITALS: BP 137/71
[2025-08-21 20:00] VITALS: BP 153/75
[2025-08-22] VITALS: BP 145/79
[2025-08-22 06:03] LABS: MEAN CELL VOLUME 89.6 fl (81.0-99.0); MEAN CORPUSCULAR HGB 30.0 pg (27.0-31.0); MEAN PLATELET VOLUME 9.5 fl (9.6-12.3); NUCLEATED RED BLOOD CELL 0.0 10*3/uL (0.0-0.0); NUCLEATED RED BLOOD CELL 0.1 % (0.0-0.0); PLATELET COUNT AUTOMATED 280 10*3/uL (130-400); RED CELL DISTRI WIDTH 14.0 % (0-14.5)
[2025-08-22 06:12] LABS: MANUAL DIFF REFLEX YES
[2025-08-22 06:46] LABS: BUN 14 mg/dl (9-23)
[2025-08-22 06:58] LABS: PLATELET SUFFICIENCY NORMAL (NORMAL)
[2025-08-22] MEDS ORDERED: POTASSIUM CHLORIDE 20 MEQ TAB PO ONE (07:25)
[2025-08-22 07:55] VITALS: BP 140/76
[2025-08-22 12:00] VITALS: BP 145/60
[2025-08-22] MEDS ORDERED: Ondansetron Hydrochloride 4 MG TAB SL PRN (13:40)
[2025-08-22] MEDS ORDERED: FLUCONAZOLE 100 MG TAB PO ONE (15:20)
[2025-08-22 16:00] VITALS: BP 119/62
[2025-08-22 20:00] VITALS: BP 142/78
[2025-08-23] VITALS: BP 154/92
[2025-08-23 05:12] LABS: BUN 13 mg/dl (9-23); SGPT/ALT 90 U/L (5-49)
[2025-08-23 05:59] LABS: MEAN CELL VOLUME 92.3 fl (81.0-99.0); MEAN CORPUSCULAR HGB 30.3 pg (27.0-31.0); MEAN PLATELET VOLUME 9.7 fl (9.6-12.3); NUCLEATED RED BLOOD CELL 0.0 % (0.0-0.0); NUCLEATED RED BLOOD CELL 0.0 10*3/uL (0.0-0.0); PLATELET COUNT AUTOMATED 286 10*3/uL (130-400); RED CELL DISTRI WIDTH 14.2 % (0-14.5)
[2025-08-23 06:01] LABS: MANUAL DIFF REFLEX YES
[2025-08-23 06:44] LABS: PLATELET SUFFICIENCY NORMAL (NORMAL)
[2025-08-23 08:00] VITALS: BP 158/70
[2025-08-23] MEDS ORDERED: DOXYCYCLINE HY100 M3 PO (11:55)
== END 2025-08-23 14:00 | disposition home or self-care (01) | DRG 871 ==
LOC: ED 09:06 → 4E 12:34 → EDHOLD 12:34 → 5E 13:57 → ICCU 14:47 → 4E 08-19 20:48
PROVIDERS: Emergency Medicine; Student in an Organized Health Care Education/Training Program; ADMIT Student in an Organized Health Care Education/Training Program; ATTEND Student in an Organized Health Care Education/Training Program
DX: A41.50 Gram-negative sepsis, unspecified (principal); E43 Unspecified severe protein-calorie malnutrition; J15.69 Pneumonia due to other Gram-negative bacteria; I50.23 Acute on chronic systolic (congestive) heart failure; N39.0 Urinary tract infection, site not specified; B49 Unspecified mycosis; Z68.41 Body mass index [BMI] 40.0-44.9, adult; K21.9 Gastro-esophageal reflux disease without esophagitis; F41.1 Generalized anxiety disorder; E78.2 Mixed hyperlipidemia; R73.9 Hyperglycemia, unspecified; Z20.822 Contact with and (suspected) exposure to COVID-19; E55.9 Vitamin D deficiency, unspecified; R74.01 Elevation of levels of liver transaminase levels; I11.0 Hypertensive heart disease with heart failure; E87.6 Hypokalemia; K76.9 Liver disease, unspecified; K76.0 Fatty (change of) liver, not elsewhere classified; Z88.8 Allergy status to other drugs, medicaments and biological substances; Z91.09 Other allergy status, other than to drugs and biological substances; Z79.899 Other long term (current) drug therapy; Z79.01 Long term (current) use of anticoagulants; Z79.2 Long term (current) use of antibiotics; Z79.82 Long term (current) use of aspirin; Z87.891 Personal history of nicotine dependence; Z82.49 Family history of ischemic heart disease and other diseases of the circulatory system; Z95.5 Presence of coronary angioplasty implant and graft; Z83.3 Family history of diabetes mellitus; Z80.0 Family history of malignant neoplasm of digestive organs

== ENCOUNTER → 2025-09-11 | Outpatient (CLI) | payer MEDICARE ==
[~2025-09-11] MED LIST changes: +DOXYCYCLINE HY100 M3 PO
[2025-09-11 08:57] LABS: BASO # 0.1 10*3/uL (0.0-0.1); BASO % 0.8 % (0.0-1.0); EOS # 0.2 10*3/uL (0.0-0.4); EOS % 2.7 % (1.0-4.0); MEAN CELL VOLUME 93.8 fl (81.0-99.0); MEAN CORPUSCULAR HGB 29.6 pg (27.0-31.0); MEAN PLATELET VOLUME 8.5 fl (9.6-12.3); MONO # 0.7 10*3/uL (0.1-1.0); MONO % 8.0 % (3.0-9.0); NEUT # 5.8 10*3/uL (2.3-7.9); NEUT % 64.4 % (47.0-73.0); NUCLEATED RED BLOOD CELL 0.0 % (0.0-0.0); NUCLEATED RED BLOOD CELL 0.0 10*3/uL (0.0-0.0); PLATELET COUNT AUTOMATED 642 10*3/uL (130-400); RED CELL DISTRI WIDTH 13.9 % (0-14.5)
[2025-09-11 09:26] LABS: BUN 10 mg/dl (9-23); LDL CHOLESTEROL 109 mg/dL (9-159); SGPT/ALT 25 U/L (5-49)
== END | disposition home or self-care (01) ==
LOC: LAB 08:09
PROVIDERS: ATTEND Internal Medicine
DX: E78.2 Mixed hyperlipidemia (principal); K76.9 Liver disease, unspecified; I11.0 Hypertensive heart disease with heart failure; I50.20 Unspecified systolic (congestive) heart failure; R79.89 Other specified abnormal findings of blood chemistry